=== PATIENT | female | born 1965 | race Caucasian/White ===

== ENCOUNTER → 2016-12-28 | Outpatient (CLI) | payer BC ==
[2016-12-28 15:50] VITALS: BP 105/66; PULSE 80; RESP 20; TEMP 98.1; BMI 43.0
--- NOTE | 2016-12-28 15:56 | P.HPBAR ---
Bariatric H&P - History & Physicial H&P Date: 12/28/16 History & Physicial: Visit/CC: wants a sleeve Patient initial contact: December 2016 Initial weight: 121.064 kg Initial weight in pounds: 266.90 Height: 5 ft 6 in Initial BMI: 43.0 Last weight: Current weight: 121.064 kg Current weight in pounds: 266.90 Current BMI: 43.0 [place] body weight (based on NIH guidelines): 58.967 kg Excess body weight loss: 0.0% The patient is a 51 year-old F who presents for Bariatric Assessment. she presents today as a new patient for sleeve gastrectomy evaluation. She knows 2 separate patients who have had sleeve gastrectomy in the past and believes that is the most appropriate surgery for her. She went to a recent seminar with her . the patient suffers from high blood pressure and hypothyroidism. Denies reflux. No history of DVT in the past. the patient was having ST to 72. Her weight currently is 267. she recently stopped drinking pop and started with smaller meals and has had a 5 pound weight loss. her only significant abdominal surgery was a lap jolene done 8-9 years ago. she is a nonsmoker. she does require a 7 month supervised weight loss program. Review of Systems The patient denies any acute changes in his vision or hearing, no dysphagia or odynophagia, no chest pain or shortness of breath, no dysuria or hematuria, no headache, no runny nose, no rectal bleeding or melena, no unexplained weight loss Past Medical History Smoking Status: Never smoker Surgical - Exam Vital Signs Temp Pulse Resp BP 98.1 F 80 20 105/66 12/28/16 15:12 12/28/16 15:12 12/28/16 15:12 12/28/16 15:12 Physical exam: General: Well-developed, well-nourished HEENT: Normocephalic, sclerae nonicteric Abdomen: Nontender, nondistended, no palpable hernia Extremities: No edema Neuro: Alert and oriented Bariatric Assessment & Plan (1) Morbid obesity Narrative/Plan: Continue seven-month supervised weight loss program. Await medical clearance and psychological evaluation. Will require upper endoscopy one month prior to surgery. Will require preoperative lab work. The patient will follow up with me after her upper endoscopy to finalize surgical plans. Status: Acute Bariatric Checklist Checklist: Plan: Checklist: EGD: 1. Hiatal hernia: 2. H. Pylori: HgbA1c: Vitamin D: Smoking: Never smoker Primary care physician referral: Dr Patrick Psychiatry clearance: Cardiology clearance: Sleep study: Diet journal: VTE risk score: VTE risk level: Rehab needs at discharge: Bariatric MBSAQIP Questions - General Questions Was an incisional hernia noted on exam?: No - Comorbidities Sleep Apnea: No GERD requiring medication: No Hyperlipidemia: No Hypertension: Yes Diabetes: No
== END | disposition home or self-care (01) ==
LOC: BARWHC3 14:19
PROVIDERS: ATTEND Surgery
DX: E66.01 Morbid (severe) obesity due to excess calories (principal); E03.9 Hypothyroidism, unspecified; R03.0 Elevated blood-pressure reading, without diagnosis of hypertension
CPT/HCPCS: 99201

== ENCOUNTER → 2017-05-17 | Outpatient (CLI) | payer BC ==
[2017-05-17 15:08] VITALS: BP 127/86; PULSE 82; TEMP 98.4; BMI 42.4
== END | disposition home or self-care (01) ==
LOC: BARWHC3 14:20
PROVIDERS: ATTEND Surgery
DX: E66.01 Morbid (severe) obesity due to excess calories (principal); Z71.89 Other specified counseling
CPT/HCPCS: 99211

== ENCOUNTER 2017-05-27 07:36 | Day surgery (SDC) | payer BC ==
[2017-05-24 15:26] VITALS: BMI 42.4
[~2017-05-27 07:36] MED LIST: LACTATED RINGERS 1,000 ML IV SCH; LIDOCAINE 1% 20 ML VIAL (10MG/ML) FOR IV START INTRADERMA PRN
[2017-05-27 08:02] VITALS: TEMP 97
[2017-05-27] MEDS ORDERED: PROPOFOL 10 MG/ML 20 ML VIAL IV ONE (08:42)
[2017-05-27] MEDS ORDERED: LIDOCAINE 1% INJ 10MG/ML (20 ML MDV) ONE (08:42)
--- NOTE | 2017-05-27 08:56 | P.GSHP ---
History of Present Illness H&P Date: 05/27/17 Chief Complaint: GERD Patient here today for upper endoscopy. She is interested in sleeve gastrectomy. She has recently completed her 6 month supervised weight loss program. Only mild reflux at times. Denies dysphagia. Past Medical History Past Medical History: Hypertension, Thyroid Disorder History of Any Multi-Drug Resistant Organisms: None Reported Past Surgical History: Cholecystectomy, Tonsillectomy, Tubal Ligation, Uterine Ablation Additional Past Surgical History / Comment(s): nose surgery 2014 Past Anesthesia/Blood Transfusion Reactions: Previous Problems w/ Anesthesia Additional Past Anesthesia/Blood Transfusion Reaction / Comment(s): states "feels agitated and panicky with anesthesia." Past Psychological History: No Psychological Hx Reported Smoking Status: Never smoker Past Alcohol Use History: Occasional Past Drug Use History: None Reported - Past Family History Mother Family Medical History: Cancer, Coronary Artery Disease (CAD) Additional Family Medical History / Comment(s): CABG Father Family Medical History: Cancer, Coronary Artery Disease (CAD) Additional Family Medical History / Comment(s): CABG Brother(s) Family Medical History: AFIB Medications and Allergies Home Medications Medication Instructions Recorded Confirmed Type Aspirin 81 mg PO DAILY 12/29/16 05/24/17 History Biotin 5 mg PO DAILY 12/29/16 05/24/17 History Citalopram Hydrobromide 40 mg PO QAM 12/29/16 05/24/17 History [Citalopram HBr] Diltiazem HCl [Diltiazem 12Hr ER] 1 tab PO QAM 12/29/16 05/24/17 History Enalapril [Vasotec] 20 mg PO QAM 12/29/16 05/24/17 History Fexofenadine HCl [Angelica Allergy] 60 mg PO HS 12/29/16 05/24/17 History Levothyroxine Sodium [Synthroid] 200 mcg PO QAM 12/29/16 05/24/17 History Liothyronine Sodium [Cytomel] 5 mcg PO QAM 12/29/16 05/24/17 History Montelukast [Singulair] 10 mg PO QAM 12/29/16 05/24/17 History Multivitamin [Multivitamins Adult 1 tab PO DAILY 12/29/16 05/24/17 History Gummies] Allergies Allergy/AdvReac Type Severity Reaction Status Date / Time Penicillins Allergy Anaphylaxis Verified 05/24/17 15:14 Surgical - Exam Vital Signs Temp Pulse Resp BP Pulse Ox 97.0 F L 92 18 152/88 98 05/27/17 08:01 05/27/17 08:01 05/27/17 08:01 05/27/17 08:01 05/27/17 08:01 Physical exam: General: Well-developed, well-nourished HEENT: Normocephalic, sclerae nonicteric Abdomen: Nontender, nondistended Extremities: No edema Neuro: Alert and oriented Assessment and Plan (1) GERD (gastroesophageal reflux disease) Narrative/Plan: Will proceed with upper endoscopy at this time. Status: Acute
--- NOTE | 2017-05-27 09:03 | P.PCN ---
Date of Procedure: 05/27/17 Procedure(s) Performed: Preoperative Dx: Preoperative evaluation, mild reflux Postoperative Dx: Mild gastritis Procedure: EGD with Bx Anesthesia: Sedation Endoscopist: Dr. Mccloud Specimens: Antrum Endoscopic Procedure: The patient was on the endoscopy table in the left decubitus position. The Olympus gastroscope was inserted into the oropharynx and passed under direct visualization to the region of the third portion of the duodenum. From that point the scope was slowly withdrawn inspecting all surfaces carefully. There were no neoplastic inflammatory or polypoid lesions throughout the duodenum. The pylorus was widely patent. The stomach was carefully inspected. There was mild gastritis present. A biopsy of the antrum took place to rule out H. pylori. Retroflexion revealed a normal hiatus. The esophagus was then carefully examined. There were no neoplastic inflammatory or polypoid lesions throughout the visualized esophagus. The patient was then taken to the recovery room in stable condition per anesthesia guidelines. Recommendations: Await biopsy results. Proceed with scheduling sleeve gastrectomy
[2017-05-27 09:06] VITALS: RESP 16
[2017-05-27 09:33] VITALS: BP 132/63; PULSE 67
== END 2017-05-27 09:47 | disposition home or self-care (01) ==
LOC: ORWHC2ENDO 07:36
PROVIDERS: ATTEND Surgery
DX: K21.9 Gastro-esophageal reflux disease without esophagitis (principal); E07.9 Disorder of thyroid, unspecified; I10 Essential (primary) hypertension; K29.50 Unspecified chronic gastritis without bleeding; Z01.818 Encounter for other preprocedural examination; Z79.82 Long term (current) use of aspirin; Z82.49 Family history of ischemic heart disease and other diseases of the circulatory system; Z88.0 Allergy status to penicillin; E66.01 Morbid (severe) obesity due to excess calories
CPT/HCPCS: 81025; 88305; 88342; 43239; J2001; J2704

== ENCOUNTER → 2017-06-06 | Outpatient (CLI) | payer BC ==
[2017-06-06 15:49] VITALS: BMI 43.0
== END | disposition home or self-care (01) ==
LOC: BARWHC3 08:51
PROVIDERS: ATTEND Surgery
DX: E66.01 Morbid (severe) obesity due to excess calories (principal)
CPT/HCPCS: 97804

== ENCOUNTER → 2017-11-02 | Outpatient (CLI) | payer BC ==
--- NOTE | 2017-11-03 10:21 | MM ---
Reason for exam: screening (asymptomatic). Last mammogram was performed 2 years and 5 months ago. History: Patient is nulliparous. Family history of breast cancer in mother at age 64. Took hormonal contraceptives for 10 years. Physical Findings: A clinical breast exam by your physician is recommended on an annual basis and results should be correlated with mammographic findings. MG Screening Mammo w CAD Bilateral CC and MLO view(s) were taken. Prior study comparison: May 30, 2015, bilateral MG screening mammo w CAD. April 25, 2013, bilateral digital screening mammo w/CAD. There are scattered fibroglandular densities. Finding: There are typically benign dystrophic, round calcifications in both breasts. There is a chronic nodularity bilaterally. New group of indistinct calcifications in the left anterior subareolar position. ASSESSMENT: Incomplete: need additional imaging evaluation, BI-RAD 0 RECOMMENDATION: Special view mammogram of the left breast. [facility] will attempt to contact patient to return for supplemental views.
== END | disposition home or self-care (01) ==
LOC: RADMAMWWP 16:06
PROVIDERS: ATTEND Internal Medicine
DX: Z12.31 Encounter for screening mammogram for malignant neoplasm of breast (principal)
CPT/HCPCS: 77067

== ENCOUNTER → 2017-11-10 | Outpatient (CLI) | payer BC ==
--- NOTE | 2017-11-10 10:47 | MM ---
Reason for exam: additional evaluation requested from abnormal screening. Last mammogram was performed less than 1 month ago. History: Patient is nulliparous. Family history of breast cancer in mother at age 64. Took hormonal contraceptives for 10 years. Physical Findings: Nurse did not find any significant physical abnormalities on exam. MG Work Up Mamm w CAD LT CC with magnification, ML with magnification, and ML view(s) were taken of the left breast. Prior study comparison: November 02, 2017, bilateral MG screening mammo w CAD. May 30, 2015, bilateral MG screening mammo w CAD. There are scattered fibroglandular densities. Finding: There are intermediate concern, suspicious calcifications in the subareolar position of the left breast. New finding since November 02, 2017 and May 30, 2015. These results were verbally communicated with the patient and result sheet given to the patient on 11/10/17. ASSESSMENT: Incomplete: need additional imaging evaluation, BI-RAD 0 RECOMMENDATION: Ultrasound and stereotactic core biopsy of the left breast. Called Dr. Patrick with mammographic findings and has scheduled an appointment for the patient for 11/24/17 at 10:[address] Mccloud. Biopsy scheduled for 11/14/17 at 8 o'clock. PRELIMINARY REPORT CALLED AND FAXED TO DR. MCCLOUD ON 11/10/17.
--- NOTE | 2017-11-10 10:49 | USB ---
Reason for exam: additional evaluation requested from abnormal screening. History: Patient is nulliparous. Family history of breast cancer in mother at age 64. Took hormonal contraceptives for 10 years. US Breast Workup Limited LT Left breast ultrasound demonstrates no cystic or solid lesion seen. These results were verbally communicated with the patient and result sheet given to the patient on 11/10/17. ASSESSMENT: Negative, BI-RAD 1 RECOMMENDATION: Stereotactic core biopsy of the left breast. Called Dr. Patrick with mammographic findings and has scheduled an appointment for the patient for 11/24/17 at 10:[address] Mccolud. Biopsy scheduled for 11/14/17 at 8 o'clock. PRELIMINARY REPORT CALLED AND FAXED TO DR. MCCLOUD ON 11/10/17.
== END | disposition home or self-care (01) ==
LOC: RADMAMWWP 06:57
PROVIDERS: ATTEND Internal Medicine
DX: R92.8 Other abnormal and inconclusive findings on diagnostic imaging of breast (principal)
CPT/HCPCS: 77065

== ENCOUNTER → 2017-11-14 | Day surgery (SDC) | payer BC ==
[2017-11-14 07:22] VITALS: RESP 16; TEMP 98; BMI 37.9
[2017-11-14 09:27] VITALS: BP 106/71; PULSE 69
--- NOTE | 2017-11-14 10:02 | MM ---
EXAMINATION TYPE: MG stereo VAD BX LT DATE OF EXAM: 11/14/2017 COMPARISON: 11/10/17 CLINICAL HISTORY: Indeterminate anterior to subcentimeter group of calcifications in the lower outer quadrant for which dedicated guided biopsy was recommended. TECHNIQUE: Stereotactic guided core biopsy of left breast. FINDINGS: The procedure of stereotactic guided core biopsy was explained to the patient. Benefits, a lternatives, and risks were discussed. An informed consent was then obtained. Preprocedural timeout was performed. The safest pathway for biopsy was chosen. Safest pathway was lateral medial approach. Preprocedural t argeting was performed with stereotactic pairs. Coordinates were calculated. 10 cc of lidocaine witho ut epinephrine buffered with bicarbonate was utilized to anesthetize the skin and subcutaneous tissue s. The needle was advanced to the appropriate depth. Prefire images were obtained ensuring appropriat e localization. Additional 5 cc of lidocaine with epinephrine was given at the site of biopsy. Subseq uently 9 samples were obtained with a vacuum assisted stereotactic biopsy needle. Targeted calcifica tions are identified in specimen mammogram. Post biopsy marker was placed. Post biopsy mammogram caterina ws the clip to appear in satisfactory position relative to the targeted area of concern on the prepro cedure images. The patient tolerated the procedure well without any immediate complication. The patient was kept in the radiology department for short stay after the procedure and then discharged home in stable condi tion. IMPRESSION: SUCCESSFUL, UNCOMPLICATED STEREOTACTIC GUIDED CORE BIOPSY OF A SUBCENTIMETER GROUP OF CALCIFICATIONS AT ANTERIOR DEPTH IN THE LOWER OUTER QUADRANT OF THE LEFT BREAST, FULL PATHOLOGY RESULTS TO FOLLOW.
== END ==
LOC: RADMAMWWP 06:52
PROVIDERS: ATTEND Surgery
DX: N60.92 Unspecified benign mammary dysplasia of left breast (principal); N60.22 Fibroadenosis of left breast; R92.1 Mammographic calcification found on diagnostic imaging of breast; Z88.0 Allergy status to penicillin
CPT/HCPCS: 88305; 19081; A4648; J2001

== ENCOUNTER → 2018-06-02 | Outpatient (CLI) | payer BC ==
--- NOTE | 2018-06-02 08:24 | MM ---
Reason for exam: follow-up at short interval from prior study. Last mammogram was performed 7 months ago. History: Patient is nulliparous. Family history of breast cancer in mother at age 64. Benign MG stereo VAD BX LT of the left breast, November 14, 2017. Took hormonal contraceptives for 10 years. Physical Findings: A clinical breast exam by your physician is recommended on an annual basis and results should be correlated with mammographic findings. MG Diagnostic Mammo LT w CAD CC, MLO, and ML view(s) were taken of the left breast. Prior study comparison: November 10, 2017, left breast MG work up mamm w CAD LT. November 02, 2017, bilateral MG screening mammo w CAD. There are scattered fibroglandular densities. No significant changes when compared with prior studies. ASSESSMENT: Benign, BI-RAD 2 RECOMMENDATION: Return to routine screening mammogram schedule for both breasts. Back on schedule.
== END | disposition home or self-care (01) ==
LOC: RADMAMWWP 06:55
PROVIDERS: ATTEND Surgery
DX: R92.8 Other abnormal and inconclusive findings on diagnostic imaging of breast (principal)
CPT/HCPCS: 77065

== ENCOUNTER 2018-12-05 20:29 | Inpatient (IN) | payer BC ==
[2018-12-05] MEDS ORDERED: SODIUM CHLORIDE 0.9% 1,000 ML IV STA (20:49)
[2018-12-05] MEDS ORDERED: ONDANSETRON 4 MG/2 ML VIAL IVP STA (20:49)
[2018-12-05] MEDS ORDERED: MORPHINE SULFATE 4 MG/ML SYRINGE IV STA (20:49)
--- NOTE | 2018-12-05 21:27 | XR ---
EXAMINATION TYPE: XR ankle limited RT DATE OF EXAM: 12/05/2018 COMPARISON: None HISTORY: Fell down the stairs TECHNIQUE: 2 views FINDINGS: There is posterior dislocation of the talus. There is trimalleolar fracture of the ankle. T here is comminution of the distal fibular fragment. IMPRESSION: Posterior trimalleolar fracture dislocation of the right ankle.
--- NOTE | 2018-12-05 21:29 | XR ---
EXAMINATION TYPE: XR tibia fibula RT DATE OF EXAM: 12/05/2018 COMPARISON: NONE HISTORY: Fell down the stairs. Pain. TECHNIQUE: 4 views FINDINGS: There is trimalleolar fracture posterior dislocation of the ankle joint. The knee joint keyur ears intact. IMPRESSION: Comminuted posterior TRImalleolar fracture dislocation of the ankle joint. Plantar calcan eal spurring noted.
--- NOTE | 2018-12-05 21:30 | XR ---
EXAMINATION TYPE: XR foot limited RT DATE OF EXAM: 12/05/2018 COMPARISON: NONE HISTORY: Fell down the stairs. Pain. TECHNIQUE: 2 views FINDINGS: Metatarsals are intact. Injured tarsal joint spaces are fairly normal. The toes appear inta ct. There is narrowing and spurring at the first MP joint. IMPRESSION: No foot fracture seen. Plantar calcaneal spurring. 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
[2018-12-05 21:42] LABS: Basophils % (A) 0 %; Eosinophils # (A) 0.2 k/uL (0-0.7); Eosinophils % (A) 2 %; HCT 40.3 % (34.0-46.0); HGB 12.9 gm/dL (11.4-16.0); Lymphocytes # (A) 1.7 k/uL (1.0-4.8); Lymphocytes % (A) 16 %; MCH 28.6 pg (25.0-35.0); MCV 89.5 fL (80.0-100.0); Mean Platelet Volume 6.5; Monocytes # (A) 0.4 k/uL (0-1.0); Monocytes % (A) 4 %; Neutrophils # (A) 8.4 k/uL (1.3-7.7); Neutrophils % (A) 76 %; Platelet Count 379 k/uL (150-450); RBC 4.51 m/uL (3.80-5.40); RDW 12.9 % (11.5-15.5)
[2018-12-05 21:47] LABS: Anion Gap 8 mmol/L; Blood Urea Nitrogen 17 mg/dL (7-17); Calcium 9.4 mg/dL (8.4-10.2); Carbon Dioxide 19 mmol/L (22-30); Chloride 111 mmol/L (98-107); Glucose 99 mg/dL (74-99); Potassium 5.1 mmol/L (3.5-5.1); Sodium 138 mmol/L (137-145)
[2018-12-05 22:08] LABS: INR 0.9 (<1.2); Prothrombin Time 9.9 sec (9.0-12.0)
[2018-12-05 22:10] LABS: Partial Thromboplastin Time 20.2 sec (22.0-30.0)
[2018-12-05] MEDS ORDERED: PROPOFOL 10 MG/ML 20 ML VIAL IV ONE (22:16)
--- NOTE | 2018-12-05 22:21 | ED ---
Lower Extremity Injury HPI - General Chief Complaint: Extremity Injury, Lower Stated Complaint: Fall Time Seen by Provider: 12/05/18 20:44 Source: patient, EMS Mode of arrival: EMS - History of Present Illness Initial Comments: This 53-year-old white female presents complaining of falling down 15 stairs. She states that she apparently lost her balance towards the top of the stairs. She is complaining of some right ankle pain. She states that she was able to crawl back up the stairs and called the ambulance. She did receive some morphine via EMS and route with some relief. She still complains of some moderate to significant pain. She denies any other injuries. She denies any head injury, neck pain or back pain. She does relate a history of previous falls which she seems to think may be related to her bifocals. She denies any actual syncope. There is no chest pain or shortness of breath. No other complaints or modifying factors. - Related Data Home Medications Medication Instructions Recorded Confirmed Aspirin 81 mg PO DAILY 12/29/16 11/14/17 Citalopram Hydrobromide 40 mg PO QAM 12/29/16 11/14/17 [Citalopram HBr] Diltiazem HCl [Diltiazem 12Hr ER] 1 tab PO QAM 12/29/16 11/14/17 Enalapril [Vasotec] 20 mg PO QAM 12/29/16 11/14/17 Fexofenadine HCl [Angelica Allergy] 60 mg PO HS 12/29/16 11/14/17 Levothyroxine Sodium [Synthroid] 200 mcg PO QAM 12/29/16 11/14/17 Liothyronine Sodium [Cytomel] 5 mcg PO QAM 12/29/16 11/14/17 Montelukast [Singulair] 10 mg PO QAM 12/29/16 11/14/17 Multivitamin [Multivitamins Adult 1 tab PO DAILY 12/29/16 11/14/17 Gummies] Allergies Allergy/AdvReac Type Severity Reaction Status Date / Time Penicillins Allergy Anaphylaxis Verified 12/05/18 21:01 Review of Systems ROS Statement: Those systems with pertinent positive or pertinent negative responses have been documented in the HPI. ROS Other: All systems not noted in ROS Statement are negative. Past Medical History Past Medical History: Hypertension, Thyroid Disorder Additional Past Medical History / Comment(s): seasonal allergies History of Any Multi-Drug Resistant Organisms: None Reported Past Surgical History: Cholecystectomy, Tonsillectomy, Tubal Ligation, Uterine Ablation Additional Past Surgical History / Comment(s): nose surgery 2015 Past Anesthesia/Blood Transfusion Reactions: Previous Problems w/ Anesthesia Additional Past Anesthesia/Blood Transfusion Reaction / Comment(s): states "feels agitated and panicky with anesthesia." Past Psychological History: No Psychological Hx Reported Smoking Status: Never smoker Past Alcohol Use History: Occasional Past Drug Use History: None Reported - Past Family History Mother Family Medical History: Cancer, Coronary Artery Disease (CAD) Additional Family Medical History / Comment(s): CABG Father Family Medical History: Cancer, Coronary Artery Disease (CAD) Additional Family Medical History / Comment(s): CABG Brother(s) Family Medical History: AFIB General Exam - General Exam Comments Initial Comments: GENERAL: The patient is well nourished and well hydrated. VITAL SIGNS: Heart rate, blood pressure, respiratory rate reviewed as recorded in nurse's notes. EYES: Pupils are round and reactive. Extraocular movements are intact. No conjunctival / lid redness or swelling. ENT: No external evidence of injury, swelling, or ecchymosis. Airway is patent. Throat is clear. NECK: Nontender. No swelling or evidence of injury. No subcutaneous emphysema. Trachea is midline. No thyroid mass. HEART: Regular rate and rhythm. Good peripheral pulses. LUNGS/CHEST: Breath sounds clear and equal bilaterally. No rales, rhonchi, or wheezes. No ecchymosis, subcutaneous emphysema, or tenderness. ABDOMEN: Abdomen soft without tenderness. No palpable masses or organomegaly. No peritoneal signs. No abdominal wall swelling or ecchymosis. EXTREMITIES: Tenderness and deformity is noted to the right ankle. The patient does have excellent pulses. Sensation appears to be intact as well. No other orthopedic injuries are identified. Normal muscle tone and function. No thoracolumbar tenderness. NEUROLOGIC: Sensation is grossly intact. Cranial nerve exam reveals face is symmetrical, tongue is midline, speech is clear. SKIN: No abrasions or ecchymosis is noted. No induration or masses noted. PSYCHIATRIC: Alert and oriented. Appropriate behavior and judgment. Course Vital Signs 12/05/18 12/05/18 12/05/18 20:40 22:00 22:38 Temperature 98.0 F Pulse Rate 96 85 88 Respiratory 18 18 18 Rate Blood Pressure 151/66 125/69 146/76 O2 Sat by Pulse 98 97 93 L Oximetry 12/05/18 12/05/18 12/05/18 22:41 22:45 22:50 Temperature Pulse Rate 89 86 84 Respiratory 16 18 18 Rate Blood Pressure 118/69 118/64 109/70 O2 Sat by Pulse 94 L 95 95 Oximetry 12/05/18 12/05/18 12/05/18 23:00 23:15 23:30 Temperature 98.0 F Pulse Rate 85 84 82 Respiratory 18 18 18 Rate Blood Pressure 126/65 126/61 118/56 O2 Sat by Pulse 95 96 95 Oximetry Medical Decision Making - Medical Decision Making The patient is seen and examined. All diagnostics are reviewed. The CO2 is slightly decreased. The remainder of labs are essentially within normal limits with a mild leukocytosis. He also has an x-ray of the right tibia and fibula right foot which does not show any acute abnormalities. The ankle does show evidence of a trimalleolar fracture dislocation. The patient had an EKG which shows a normal sinus rhythm at a rate of 82. There is no acute ST-T wave changes identified. An IV is established and she does receive additional 4 mg of morphine. Is felt as though she benefit from reduction of her ankle. She does elect to have procedural sedation. The case is discussed with orthopedics in the requests that we reduce the ankle in the ER numerous and the patient home or admit her. She is strongly requesting admission to the hospital. She states that she is not history with crutches and is worried about falling again. Consent was obtained for procedural sedation. Time out was completed prior to the procedure. The patient received a total of 120 mg of propofol. Excellent sedation is noted. She is watched on a cardiorespiratory monitor. The ankle was reduced in the usual standard fashion with slight pressure. It did seem to align quite well. Ample padding was initially placed, a 5 inch posterior splint was placed in a 3 inch sugar tong cast was placed laterally and medially. Cirilo wrap was then applied. She tolerated this quite well. There is no desaturations or complications. There is no blood loss. Please see the nursing notes for the specific times. It is felt as though patient would require admission and will be admitted to the general medical floor for further treatment - Lab Data Result diagrams: 12/05/18 21:25 12/05/18 21:25 Lab Results 12/05/18 12/05/18 12/05/18 Range/Units 21:25 21:25 21:25 WBC 11.0 H (3.8-10.6) k/uL RBC 4.51 (3.80-5.40) m/uL Hgb 12.9 (11.4-16.0) gm/dL Hct 40.3 (34.0-46.0) % MCV 89.5 (80.0-100.0) fL MCH 28.6 (25.0-35.0) pg MCHC 32.0 (31.0-37.0) g/dL RDW 12.9 (11.5-15.5) % Plt Count 379 (150-450) k/uL Neutrophils % 76 % Lymphocytes % 16 % Monocytes % 4 % Eosinophils % 2 % Basophils % 0 % Neutrophils # 8.4 H (1.3-7.7) k/uL Lymphocytes # 1.7 (1.0-4.8) k/uL Monocytes # 0.4 (0-1.0) k/uL Eosinophils # 0.2 (0-0.7) k/uL Basophils # 0.0 (0-0.2) k/uL PT 9.9 (9.0-12.0) sec INR 0.9 (<1.2) APTT 20.2 L (22.0-30.0) sec Sodium 138 (137-145) mmol/L Potassium 5.1 (3.5-5.1) mmol/L Chloride 111 H (98-107) mmol/L Carbon Dioxide 19 L (22-30) mmol/L Anion Gap 8 mmol/L BUN 17 (7-17) mg/dL Creatinine 0.57 (0.52-1.04) mg/dL Est GFR (CKD-EPI)AfAm >90 (>60 ml/min/1.73 sqM) Est GFR (CKD-EPI)NonAf >90 (>60 ml/min/1.73 sqM) Glucose 99 (74-99) mg/dL Calcium 9.4 (8.4-10.2) mg/dL Disposition Clinical Impression: Trimalleolar fracture of right ankle, Dislocation of right ankle joint, Fall, Morbid obesity Disposition: ADMITTED IP TO THIS HOSP Condition: Fair Is patient prescribed a controlled substance at d/c from ED?: No Time of Disposition: 23:38 Decision Date: 12/05/18 Decision Time: 23:39
--- NOTE | 2018-12-05 23:22 | XR ---
EXAM: XR Right Ankle Complete, 2Views CLINICAL HISTORY: ITS.REASON XR Reason: Post Reduction TECHNIQUE: Frontal, lateral views of the right ankle. COMPARISON: 12/05/18 FINDINGS: Interval reduction of the posterior right ankle dislocation. Trimalleolar fracture fragments are also in better alignment. IMPRESSION: Reduction of right ankle fracture dislocation.
[2018-12-05] MEDS ORDERED: ONDANSETRON 4 MG/2 ML VIAL IVP PRN (23:39)
[2018-12-05] MEDS ORDERED: ACETAMINOPHEN TAB 325 MG TAB PO PRN (23:39)
[2018-12-05] MEDS ORDERED: NALOXONE 0.4 MG/ML 1 ML VIAL IV PRN (23:39)
[2018-12-06] MEDS: MORPHINE SULFATE 4 MG/ML SYRINGE IV PRN ×4 (00:44→15:35)
[2018-12-06] MEDS: ENOXAPARIN 40 MG/0.4 ML SYRINGE SQ SCH ×2 (01:53→15:34)
[2018-12-06] MEDS: HYDROcodone/APAP 5-325MG 1 EACH TAB PO PRN ×3 (03:32→13:02)
[2018-12-06] MEDS: PANTOPRAZOLE 40 MG/10 ML VIAL IV SCH (07:46)
[2018-12-06] MEDS: LISINOPRIL 20 MG TAB PO SCH (07:47)
[2018-12-06] MEDS: MONTELUKAST 10 MG TAB PO SCH (07:47)
[2018-12-06] MEDS: CITALOPRAM HYDROBROMIDE 20 MG TAB PO SCH (07:47)
[2018-12-06] MEDS: LIOTHYRONINE SODIUM 5 MCG TAB PO SCH (07:48)
[2018-12-06] MEDS: MULTIVITAMINS, THERA 1 EACH TAB PO SCH (07:50)
[2018-12-06] MEDS: LEVOTHYROXINE 100 MCG TAB PO SCH (07:57)
--- NOTE | 2018-12-06 11:06 | CT ---
CT right ankle without contrast HISTORY: Fracture dislocation Helical acquisition through the right ankle, coronal and sagittal reconstructions. DLP 242.1 mGy cent imeters, automated exposure control for dose reduction. Correlation to plain film 12/05/2017 There is a comminuted trimalleolar fracture noted as on plain film, fracture fragments are displaced and angulated. There is soft tissue swelling present. There is a plantar calcaneal spur present. IMPRESSION: Trimalleolar right ankle fracture as described
[2018-12-06] MEDS: ASPIRIN 81 MG PO SCH (15:34)
--- NOTE | 2018-12-06 16:12 | P.HPOR ---
History of Present Illness H&P Date: 12/06/18 This patient is a 53-year-old female with a past medical history of hypertension and hypothyroidism presented to the [facility] ED on 4218 for evaluation of right ankle pain. Patient states that she lost her balance all walking down the steps to her basement. The patient states she subsequently fell down 15 steps. Patient states he experienced immediate pain in her right ankle, and visible deformity of the ankle. She had to crawl up the steps to reach a phone to call family members for help, who called EMS. Upon arrival to the ED, x-rays showed evidence of a right ankle trimalleolar fracture. She underwent a closed reduction and splinting in the ED. She was admitted to the hospital, per the patient's request, as she was afraid of falling at home again. At the time of my examination, the patient states that the pain in her right ankle is well-controlled. She states the splint that she is currently in is comfortable. Patient denies any additional injuries from her fall. She denies pain elsewhere in the body at this time. Past Medical History Past Medical History: Hypertension, Thyroid Disorder Additional Past Medical History / Comment(s): seasonal allergies History of Any Multi-Drug Resistant Organisms: None Reported Past Surgical History: Cholecystectomy, Tonsillectomy, Tubal Ligation, Uterine Ablation Additional Past Surgical History / Comment(s): nose surgery 2014 Past Anesthesia/Blood Transfusion Reactions: Previous Problems w/ Anesthesia Additional Past Anesthesia/Blood Transfusion Reaction / Comment(s): states "feels agitated and panicky with anesthesia." Past Psychological History: No Psychological Hx Reported Smoking Status: Never smoker Past Alcohol Use History: Occasional Past Drug Use History: None Reported - Past Family History Mother Family Medical History: Cancer, Coronary Artery Disease (CAD) Additional Family Medical History / Comment(s): CABG Father Family Medical History: Cancer, Coronary Artery Disease (CAD) Additional Family Medical History / Comment(s): CABG Brother(s) Family Medical History: AFIB Medications and Allergies Home Medications Medication Instructions Recorded Confirmed Type Citalopram Hydrobromide 40 mg PO QAM 12/29/16 12/06/18 History [Citalopram HBr] Diltiazem HCl [Diltiazem 12Hr ER] 120 mg PO QAM 12/29/16 12/06/18 History Enalapril [Vasotec] 20 mg PO QAM 12/29/16 12/06/18 History Levothyroxine Sodium [Synthroid] 200 mcg PO QAM 12/29/16 12/06/18 History Liothyronine Sodium [Cytomel] 5 mcg PO QAM 12/29/16 12/06/18 History Montelukast [Singulair] 10 mg PO QAM 12/29/16 12/06/18 History Multivitamin [Multivitamins Adult 1 tab PO DAILY 12/29/16 11/14/17 History Gummies] Levocetirizine Dihydrochloride 5 mg PO DAILY 12/06/18 12/06/18 History [Xyzal] Allergies Allergy/AdvReac Type Severity Reaction Status Date / Time amoxicillin Allergy Unknown Verified 12/06/18 08:30 Penicillins Allergy Anaphylaxis Verified 12/05/18 21:01 Physical Examination On examination, the patient is sitting up in bed in no acute distress. The patient is alert and oriented 3. Her breathing appears nonlabored. Her head is normocephalic and atraumatic. On inspection of the right upper extremity, there is a splint in place. Splint is taken down and reveals mild ecchymosis and swelling of the ankle. There are no open wounds or lacerations. Patient is able to wiggle her right toes without issue. The toes are warm and well- perfused with brisk capillary refill. Sensation is intact to light touch of the dorsal and plantar foot. Neurovascular is intact of the right lower extremity. Results CT right ankle 4319: Right trimalleolar ankle fracture. X-ray right ankle 4219: Posterior trimalleolar fracture dislocation of the right ankle. X-ray right foot [id number]: No acute fracture seen. - Labs Labs: Abnormal Lab Results - Last 24 Hours (Table) 12/05/18 12/05/18 12/05/18 Range/Units 21:25 21:25 21:25 WBC 11.0 H (3.8-10.6) k/uL Neutrophils # 8.4 H (1.3-7.7) k/uL APTT 20.2 L (22.0-30.0) sec Chloride 111 H (98-107) mmol/L Carbon Dioxide 19 L (22-30) mmol/L H & H 12/05/18 Range/Units 21:25 Hgb 12.9 (11.4-16.0) gm/dL Hct 40.3 (34.0-46.0) % Coagulation 12/05/18 Range/Units 21:25 INR 0.9 (<1.2) Result Diagrams: 12/05/18 21:25 12/05/18 21:25 Assessment and Plan Assessment: Right trimalleolar ankle fracture. Plan: - Discussed with the patient that she will require operative fixation of her ankle. She has mild swelling of the soft tissues at this time, therefore an attempt at a right ankle ORIF this afternoon will be performed with Dr. Martin. If upon arrival to the OR the selling of increased to the point an incision cannot be made, she will undergo a closed reduction of the ankle and she will be placed in a well-padded Bulky herzog splint, and she will follow-up with Dr. Martin in the office in one week for a soft tissue check. The patient understands and agrees with this plan. - Strict non-weight bearing right lower extremity. - NPO diet. - Continue pain management. Patient discussed with Dr. Martin.
[2018-12-06] MEDS ORDERED: SODIUM CHLORIDE 0.9% 1,000 ML IV ONE ×2 (18:00)
[2018-12-06] MEDS ORDERED: fentaNYL (PF) 50 MCG/ML 2 ML AMP IVP ONE ×2 (18:20→18:58)
[2018-12-06] MEDS ORDERED: MIDAZOLAM 2 MG/2 ML VIAL IVP ONE ×2 (18:20→18:58)
[2018-12-06] MEDS: DILTIAZEM CD 120 MG CAP.ER.24H PO SCH (18:24)
[2018-12-06] MEDS ORDERED: MIDAZOLAM 2 MG/2 ML VIAL ONE (19:00)
[2018-12-06] MEDS ORDERED: PROPOFOL 10 MG/ML 20 ML VIAL IV ONE (19:00)
[2018-12-06] MEDS ORDERED: LACTATED RINGERS 1,000 ML IV ONE (19:02)
--- NOTE | 2018-12-06 19:38 | P.OP ---
Date of Procedure: 12/06/18 Preoperative Diagnosis: 1. Right trimalleolar ankle fracture patient Postoperative Diagnosis: Same Procedure(s) Performed: Application of short-leg splint by physician, right ankle Anesthesia: MAYITO Surgeon: Dyllan Martin Condition: stable Disposition: PACU Indications for Procedure: The patient is a very pleasant 53-year-old female who was admitted last night to Dr. Loredo after she was seen in our ER with an ankle fracture. She had an attempt at closed reduction and splinting in the emergency department both unable to discharge home since he lived alone. She was admitted overnight for pain control and discharge planning. I was asked to assume responsibility for her care. I met with the patient earlier today to discuss treatment. She was almost 20 hours out from her injury and his art he started to develop soft- tissue swelling diffusely throughout the ankle. We discussed that generally requires 7-14 days of splinting and elevation to allow soft tissue swelling to resolve before surgery, but in certain cases that the fracture can be fixed early before swelling has settled in the fracture could be definitively managed early. The patient was very hopeful that she could go to the operating room tonight for operative treatment. We discussed potential risks and complications of surgery. She agreed to go forward with closed reduction and splinting versus open reduction in the operating room pending her soft tissue evaluation. Operative Findings: The patient was brought back to the operating room and her splint was taken down. She was found to have tense swelling throughout the ankle with no wrinkling of the skin. The decision was made to go forward with splinting and cancel surgery. Description of Procedure: The patient was identified in preoperative holding and I reviewed the consent form. She was brought back to the operating room. The splint was taken down and she was found to have tense swelling and bruising. She underwent application of a new splint with varus mold. Fluoroscopy was used to verify that the talus was anatomically reduced within the ankle mortise. The patient was awoken from her sedation and brought to recovery having tolerated procedure well. Plan: The patient can discharge home whenever she is comfortable. We will have discharge orders placed tonight if she feels up to leaving. She'll need to follow up in the office in 1 week for soft tissue check. She is to remain nonweightbearing on her right leg and was instructed to ice and elevate as much as possible.
[2018-12-06] MEDS ORDERED: LORATADINE 10 MG TAB PO SCH (21:00)
[2018-12-07] MEDS: MORPHINE SULFATE 4 MG/ML SYRINGE IV PRN ×2 (00:44→13:00)
[2018-12-07] MEDS: HYDROcodone/APAP 5-325MG 1 EACH TAB PO PRN ×3 (06:00→14:12)
[2018-12-07] MEDS: LEVOTHYROXINE 100 MCG TAB PO SCH (08:02)
[2018-12-07] MEDS: PANTOPRAZOLE 40 MG/10 ML VIAL IV SCH (08:02)
[2018-12-07] MEDS: MULTIVITAMINS, THERA 1 EACH TAB PO SCH (08:02)
[2018-12-07] MEDS: ENOXAPARIN 40 MG/0.4 ML SYRINGE SQ SCH ×2 (08:03→08:04)
[2018-12-07] MEDS: LISINOPRIL 20 MG TAB PO SCH (08:03)
[2018-12-07] MEDS: ASPIRIN 81 MG PO SCH (08:03)
[2018-12-07] MEDS: CITALOPRAM HYDROBROMIDE 20 MG TAB PO SCH (08:03)
[2018-12-07] MEDS: LIOTHYRONINE SODIUM 5 MCG TAB PO SCH (08:04)
[2018-12-07] MEDS: DILTIAZEM CD 120 MG CAP.ER.24H PO SCH (08:04)
[2018-12-07] MEDS: MONTELUKAST 10 MG TAB PO SCH (08:07)
--- NOTE | 2018-12-07 08:34 | XR ---
Limited right ankle HISTORY: Closed reduction Single intraoperative image documents the procedure.
--- NOTE | 2018-12-07 08:37 | FL ---
Fluoroscopy HISTORY: Closed reduction right ankle 5 seconds fluoroscopy time supplied to the referring clinician. 1 intraoperative C-arm images docume nt the procedure. See dictated report from orthopedic surgery.
[2018-12-07 12:31] VITALS: BP 113/64; PULSE 89; RESP 16; TEMP 98.3
--- NOTE | 2018-12-07 17:21 | P.DS ---
Providers Date of admission: 12/05/18 23:44 Expected date of discharge: 12/07/18 Attending physician: Augustine Loredo Primary care physician: [place] Hospital Course: This is a 51-year-old female who is admitted to [facility] on 12/05/18 after a fall down 15 steps in the home, sustaining a right ankle injury. Patient was brought to the [facility] ED via EMS. X-rays in the emergency department revealed a trimalleolar fracture of the right ankle. She is admitted to our service for pain control and discharge planning. It was discussed with the patient that her ankle had become too swollen to move forward with surgery on this admission. It was explained that it is common to wait 7-14 days for swelling to subside following an ankle fracture, before surgery is performed. Patient was taken to the operating room on 12/06/18 for a closed reduction and splint application with Dr. Martin. The procedure was performed without complication or sequelae. The patient is doing fairly well postoperatively. Vital signs and labs are stable. Patient was examined bedside today. Patient is alert and orientated x3. Inspection reveals a bulky Baeza dressing in place on the right lower extremity. Right toes are warm and well perfused with brisk capillary refill. Patient is able to move her toes without issue. Sensation is intact to light touch of the toes. Left calf is soft and non tender. Patient is discharged home in good condition. Patient will follow-up with Dr. Martin in the office in 1 week for a soft tissue check and surgical planning. Please see med rec for accurate list of discharge medication Patient Condition at Discharge: Fair Plan - Discharge Summary New Discharge Prescriptions: New Hydrocodone/Acetaminophen [[place] 5-325] 1 tab PO Q4-6H PRN #40 tab PRN Reason: Pain No Action Diltiazem HCl [Diltiazem 12Hr ER] 120 mg PO QAM Levothyroxine Sodium [Synthroid] 200 mcg PO QAM Citalopram Hydrobromide [Citalopram HBr] 40 mg PO QAM Montelukast [Singulair] 10 mg PO QAM Enalapril [Vasotec] 20 mg PO QAM Liothyronine Sodium [Cytomel] 5 mcg PO QAM Multivitamin [Multivitamins Adult Gummies] 1 tab PO DAILY Levocetirizine Dihydrochloride [Xyzal] 5 mg PO DAILY Discharge Medication List Citalopram Hydrobromide [Citalopram HBr] 40 mg PO QAM 12/29/16 [History] Diltiazem HCl [Diltiazem 12Hr ER] 120 mg PO QAM 12/29/16 [History] Enalapril [Vasotec] 20 mg PO QAM 12/29/16 [History] Levothyroxine Sodium [Synthroid] 200 mcg PO QAM 12/29/16 [History] Liothyronine Sodium [Cytomel] 5 mcg PO QAM 12/29/16 [History] Montelukast [Singulair] 10 mg PO QAM 12/29/16 [History] Multivitamin [Multivitamins Adult Gummies] 1 tab PO DAILY 12/29/16 [History] Hydrocodone/Acetaminophen [[place] 5-325] 1 tab PO Q4-6H PRN #40 tab 12/06/18 [Rx] Levocetirizine Dihydrochloride [Xyzal] 5 mg PO DAILY 12/06/18 [History] Follow up Appointment(s)/Referral(s): Dyllan Martin MD [Medical Doctor] - 12/14/18 1:00 pm Patient Instructions/Handouts: Hydrocodone/Acetaminophen (By mouth), Ankle Fracture (DC), Fall Prevention (DC) Activity/Diet/Wound Care/Special Instructions: -Strict non-weight bearing on your right leg. Do not remove your splint; Keep splint clean, dry, and intact -Use crutches, knee scooter, or a walker to ambulate. -Elevate and ice operative leg to help reduce swelling and control pain. -Take pain medications as prescribed. -Follow-up appointment with Dr. Martin in the office in 1 week for a soft tissue check. -Call the office with any questions or concerns, pt will be sent home with a rolling walker Discharge Disposition: HOME SELF-CARE
[2018-12-08] MEDS ORDERED: PANTOPRAZOLE 40 MG TABLET PO SCH (07:30)
== END 2018-12-07 16:50 | disposition home or self-care (01) | DRG 563 ==
LOC: EC 20:29 → OBSVTOIN 23:44 → 3NMEDONC 23:44
PROVIDERS: ADMIT Orthopaedic Surgery Sports Medicine; ATTEND Orthopaedic Surgery Sports Medicine
PROC: 0QSGXZZ Reposition Right Tibia, External Approach (ICD-10-PCS; 2018-12-06)
PROC: 2W3LX1Z Immobilization of Right Lower Extremity using Splint (ICD-10-PCS; 2018-12-06)
PROC: 0QSJXZZ Reposition Right Fibula, External Approach (ICD-10-PCS; principal; 2018-12-06 16:20)
DX: S82.851A Displaced trimalleolar fracture of right lower leg, initial encounter for closed fracture (principal); E66.01 Morbid (severe) obesity due to excess calories; S93.04XA Dislocation of right ankle joint, initial encounter; D72.829 Elevated white blood cell count, unspecified; E03.9 Hypothyroidism, unspecified; I10 Essential (primary) hypertension; K21.9 Gastro-esophageal reflux disease without esophagitis; Z79.82 Long term (current) use of aspirin; Z79.890 Hormone replacement therapy; Z91.81 History of falling; Z79.899 Other long term (current) drug therapy; Z88.0 Allergy status to penicillin; Z90.49 Acquired absence of other specified parts of digestive tract; Z98.51 Tubal ligation status; Z68.39 Body mass index [BMI] 39.0-39.9, adult; Z82.49 Family history of ischemic heart disease and other diseases of the circulatory system; Z80.9 Family history of malignant neoplasm, unspecified; W10.9XXA Fall (on) (from) unspecified stairs and steps, initial encounter; Y92.009 Unspecified place in unspecified non-institutional (private) residence as the place of occurrence of the external cause
CPT/HCPCS: 27818; 36415; 80048; 85025; 85610; 85730; 93005; 96361; 96374; 96375; 99285

== ENCOUNTER 2018-12-20 07:21 | Observation (INO) | payer BC ==
[2018-12-15 11:32] VITALS: BMI 39.1
[~2018-12-20 07:21] MED LIST changes: +CLINDAMYCIN 900 MG in DEXTROSE 5% IN WATER 50 ML IVPB ONE; +DEXAMETHASONE SOD PHOSPHATE 10 MG/ML 1 ML VIAL IV ONE; -LACTATED RINGERS 1,000 ML IV SCH; +ONDANSETRON 4 MG/2 ML VIAL IVP ONE; +SCOPOLAMINE 1.5MG/72HR PATCH TRANSDERM ONE
[2018-12-20] MEDS: LACTATED RINGERS 1,000 ML IV SCH ×2 (08:04→18:08)
[2018-12-20] MEDS ORDERED: MIDAZOLAM 2 MG/2 ML VIAL IV ONE (09:13)
[2018-12-20] MEDS ORDERED: fentaNYL (PF) 50 MCG/ML 2 ML AMP IV ONE (09:13)
[2018-12-20] MEDS ORDERED: fentaNYL (PF) 50 MCG/ML 2 ML AMP ONE (10:21)
[2018-12-20] MEDS ORDERED: MIDAZOLAM 2 MG/2 ML VIAL ONE (10:21)
[2018-12-20] MEDS ORDERED: LIDOCAINE 1% INJ 10MG/ML (20 ML MDV) ONE (10:21)
[2018-12-20] MEDS ORDERED: NEOSTIGMINE 1 MG/ML 10 ML VIAL ONE (10:21)
[2018-12-20] MEDS ORDERED: ePHEDrine SULFATE/0.9% NACL/PF 50 MG/5 ML SYRINGE IV ONE (10:21)
[2018-12-20] MEDS ORDERED: GLYCOPYRROLATE 0.2 MG/ML 2 ML VIAL ONE (10:21)
[2018-12-20] MEDS ORDERED: PROPOFOL 10 MG/ML 20 ML VIAL IV ONE (10:21)
[2018-12-20] MEDS ORDERED: ROCURONIUM BROMIDE 10 MG/ML 10 ML VIAL IV ONE (10:21)
--- NOTE | 2018-12-20 11:21 | P.ONQ ---
Anesthesiology Proc Note - PNB - Peripheral Nerve Block Performed Right Popliteal Single Time Out Performed: Yes (922) Procedure Start Time: :12 Procedure Stop Time: :20 Indication: Acute Post-Operative Pain, Analgesia Sedation Type: Sedate with meaningful contact maintained Preparation: Sterile Dressing Position: Supine Catheter: None Needle Types: On-Q Needle Size: 100mm (4") Needle Gauge: 20 Technique: Ultrasound Injectate: 0.5% Ropivacaine (see comment for volume) Blood Aspirated: No Pain Paresthesia on Injection Noted: No Resistance on Injection: Normal Events: Uneventful and Well Tolerated
[2018-12-20] MEDS ORDERED: ONDANSETRON 4 MG/2 ML VIAL IVP PRN (12:53)
[2018-12-20] MEDS ORDERED: HYDROmorphone 0.5 MG/0.5 ML SYRINGE IVP PRN ×2 (12:53)
[2018-12-20] MEDS ORDERED: HYDROcodone/APAP 5-325MG 1 EACH TAB PO PRN (12:53)
[2018-12-20] MEDS: HYDROmorphone 0.5 MG/0.5 ML SYRINGE IVP PRN ×3 (13:10→16:07)
--- NOTE | 2018-12-20 13:12 | P.OP ---
Date of Procedure: 12/20/18 Preoperative Diagnosis: Closed right trimalleolar ankle fracture dislocation Postoperative Diagnosis: Same Procedure(s) Performed: 1. Open reduction and internal fixation of right trimalleolar ankle fracture (open reduction internal fixation of medial and lateral malleolus, nonoperative management posterior malleolus) 2. Manual application of joint stress by physician for radiography, right ankle 3. Application of short leg splint by physician, right ankle Anesthesia: MAYITO, regional Surgeon: Dyllan Martin Rn Endoscopy #1: Chayito Ni Estimated Blood Loss (ml): 25 IV fluids (ml): 950 Pathology: none sent Condition: stable Disposition: PACU Indications for Procedure: The patient is very pleasant previously healthy 53-year-old female who sustained a right ankle fracture dislocation about 2 weeks ago when she fell down some stairs. She was initially admitted to the hospital and my partner Dr. Loredo was consulted for trimalleolar ankle fracture. She was taken to the operating room by myself and was found to be too swollen to safely perform surgery shows she was placed in a splint and was discharged to follow-up in my office. I saw her at the end of last week and she had the beginning of wrinkling in the skin. We decided that it was safe to undergo surgery. We reviewed her x-rays and computed tomography scan which showed a highly comminuted fibula fracture and a grossly unstable trimalleolar ankle fracture. We discussed the need for operative fixation. With a lengthy discussion on the potential risks and complications of surgery including but not limited to risk of anesthesia, superficial infection, deep infection, delayed wound healing, superficial wound necrosis, deep wound necrosis, fracture nonunion, fracture malunion, hardware failure, postoperative displacement of the ankle mortise, nonanatomic reduction of the syndesmosis or ankle mortise, post traumatic arthritis, symptoms hardware, DVT, PE, damage to local blood vessels or nerves, and inability to regain preinjury level of function, generalized to satisfaction with surgery, need for further surgery including an ankle fusion or replacement, and possibly loss of life or limb. The patient voiced her understanding of these potential complications and provided her verbal and written consent to go forward with surgery. Description of Procedure: The patient was identified in preoperative holding and the correct right ankle was marked with my initials. The splint was taken down and she was found to have wrinkling of the skin. I reviewed the consent form with the patient in all for questions were answered. The patient was given a popliteal and saphenous nerve block by anesthesia. She was then brought back to the operating room where general anesthetic and preoperative antibiotics were administered. She was positioned on the OR table and a tourniquet was applied to the proximal aspect of the right leg. A bump was placed on the right buttock internally rotate the leg to neutral. The left leg was secured to the table with foam and tape. Prior to securing the left leg a mortise view was taken to use as a template for reducing her right ankle. The right leg was then prepped and dr aped in the standard sterile fashion. Her to starting surgery timeout was performed identifying the correct patient, operative extremity, and procedure. The patient's leg was then elevated, exsanguinated with an Esmarch bandage, and the tourniquet was inflated to 250 mmHg. I began by outlining medial and lateral incisions over the malleoli. The lateral incision was made first with a 15 blade scalpel. Dissection was carried down carefully to the subcu in his tissue with tenotomy scissors. The fascia over the peroneal muscles was incised proximally in line with the skin incision. A branch of the superficial peroneal nerve was identified and carefully retracted. Distally the periosteum over the lateral malleolus was sharply elevated. The fracture was encountered and found to be highly comminuted. There were multiple small intercalary fragments that were too small to accommodate lag screws. Due to the amount of comminution I elected to use a bridge plating construct. Prior to placing hardware laterally the medial malleolus was addressed. The skin incision over the medial Malson was made with a 15 blade scalpel. Dissection was carried down to the subcutaneous tissue with tenotomy scissors. The periosteum over the medial malleolus was sharply elevated. The fracture was identified and intervening soft tissue was removed with a Jeevan. A 2.0 mm drill bit was used to create a unicortical perforation just proximal to the fracture. The medial malleolus fragment was teased into place with a dental pick and 1 diego of a [id number] reduction clamp was placed and the 2.0 mm drill hole and the other diego was placed to the tip of the medial malleolus. Fluoroscopy was used to verify reduction. Clinically the medial shoulder of the ankle mortise appeared to be anatomically reduced with no step-offs. I then placed nonlocking 3.5 mm screws anterior and discharge her to the diego of the clamp on the medial malleolus. The more posterior screw was bicortical. The reduction clamp was removed and the reduction held. Attention was then turned back to the lateral aspect of the ankle. A [id number] reduction clamp was used to gently pull the fibula out to length. Once it appeared symmetric to the comparison view it was pinned into place with a 0.0625 K wire. A precontoured distal fibular locking plate was placed over the lateral malleolus. The level of comminution proximally was marked out and a nonlocking 3.5 mm screw was placed just proximal to this bringing the plate down to bone. The plate was centered over the proximal fibula and an additional 2 nonlocking 3.5 mm screws were placed. Attention was then turned distally. A nonlocking 2.7 mm screw was placed through the distal cluster of holes bringing the plate down to bone. I then proceeded to place an additional 4 locking 2.7 mm screws into the distal fragment. The nonlocking 2.7 mm screw was exchanged out for a locking screw. The comminution was left as the plate nicely bridged the fibular fractures and the fracture fragments were too small to accommodate lag screw fixation. Final fluoroscopic images were taken including a true mortise view which showed an anatomic reduction of the ankle mortise. There is no widening of the medial clear space. A manual external rotation stress x-ray was performed which showed no widening of the medial clear space or incisura. I interpreted this as a stable ankle not requiring syndesmotic fixation. A true talar dome overlap lateral was taken and showed minimal displacement of the posterior malleolus and the talus was centered under the tibial plafond. Both wounds were copiously irrigated and closed in layers with 0 Vicryl for the periosteal layer, 2-0 Vicryl for the deep subcu, and a running 3-0 Monocryl subcuticular stitch for the skin. The skin incisions were reinforced with prompt return stretchy Steri-Strips. I verified that all instrument, sponge, and sharp counts were correct. A sterile dressing consisting of Betadine soaked Adaptic, 4 x 4, and web rolls applied. The tourniquet was let down and the drapes were removed. A well-padded bulky Baeza splint was placed with the ankle in neutral. The patient was then awoken from her anesthetic, transferred to a gurney, and brought to recovery entire procedure well. Chayito Lunsford PA-C was required as a skilled law office assistant for patient positioning, surgical exposure, reduction of fracture, placement of hardware, closure of wound, and application of splint. Plan: The patient is going to be admitted overnight for pain control, 2 doses of postoperative antibiotics, and physical therapy assessment for gait training. She'll receive 2 doses of postoperative antibiotics. While she is in the hospital should be treated with Lovenox for DVT prophylaxis and will be di scharged home on aspirin. She is remain strictly nonweightbearing on her right leg. The splint is to remain in place at all times. We will obtain nonweightbearing x-rays of the left foot due to pain and bruising. The patient can discharge home when her pain is controlled, she passes physical therapy, and is medically stable.
--- NOTE | 2018-12-20 13:16 | XR ---
EXAMINATION TYPE: XR ankle complete RT DATE OF EXAM: 12/20/2018 COMPARISON: NONE HISTORY: Postop TECHNIQUE: 2 views submitted FINDINGS: Postsurgical change in near-anatomic alignment. IMPRESSION: Postop
--- NOTE | 2018-12-20 13:17 | XR ---
EXAMINATION TYPE: XR foot complete LT DATE OF EXAM: 12/20/2018 COMPARISON: NONE HISTORY: Intraoperative fluoroscopy TECHNIQUE: One image submitted FINDINGS: Single image of the third fourth and fifth metatarsals is obtained with limited resolution. IMPRESSION: Intraoperative fluoroscopy
--- NOTE | 2018-12-20 13:18 | FL ---
EXAMINATION TYPE: FL guidance operating room DATE OF EXAM: 12/20/2018 HISTORY: Flouroscopy time 46 seconds of fluoroscopy provided. IMPRESSION: 1. Fluoroscopy time.
[2018-12-20 15:12] LABS: Basophils % (A) 0 %; Eosinophils % (A) 0 %; HCT 38.3 % (34.0-46.0); Lymphocytes # (A) 0.6 k/uL (1.0-4.8); Lymphocytes % (A) 7 %; MCH 28.8 pg (25.0-35.0); MCHC 31.3 g/dL (31.0-37.0); MCV 91.9 fL (80.0-100.0); Mean Platelet Volume 6.7; Monocytes # (A) 0.1 k/uL (0-1.0); Monocytes % (A) 2 %; Neutrophils # (A) 7.7 k/uL (1.3-7.7); Neutrophils % (A) 91 %; Platelet Count 419 k/uL (150-450); RBC 4.17 m/uL (3.80-5.40); RDW 13.1 % (11.5-15.5); WBC 8.5 k/uL (3.8-10.6)
--- NOTE | 2018-12-20 15:33 | P.CONS ---
History of Present Illness - Reason for Consult Consult date: 12/20/18 Medical management of hypertension hypothyroidism anxiety and depression Requesting physician: Dyllan Martin - Chief Complaint Medical management - History of Present Illness The patient is a 53-year-old obese female with a past medical history of essential hypertension hypothyroidism anxiety and depression who is admitted to the primary orthopedic service and is postop day #0 after having a ORIF of a right trimalleolar ankle fracture secondary to a previously diagnosed right trimalleolar ankle fracture with dislocation sustained approximately 2 weeks ago after the patient reportedly fell down a flight of stairs. The patient currently denies any chest pain or shortness of breath, she previously had some nausea that has been resolved since receiving antiemetics. The patient reports a 8/10 throbbing pulsating right ankle pain but otherwise has no complaints. Review of records indicates the patient is hemodynamically stable, she is normotensive with appropriate saturations on 2 L via nasal cannula. She is currently receiving perioperative antibiotics with clindamycin and his pain regimen that includes Dilaudid and Valmy. Review of Systems Pertinent positive as per HPI all other systems otherwise negative Past Medical History Past Medical History: Hypertension, Thyroid Disorder Additional Past Medical History / Comment(s): seasonal allergies History of Any Multi-Drug Resistant Organisms: None Reported Past Surgical History: Cholecystectomy, Tonsillectomy, Tubal Ligation, Uterine Ablation Additional Past Surgical History / Comment(s): nose surgery 2014 Past Anesthesia/Blood Transfusion Reactions: Previous Problems w/ Anesthesia, Family History of Problems w/ Anesthesia Additional Past Anesthesia/Blood Transfusion Reaction / Comm: states "feels agitated and panicky with anesthesia.". mother hallucinated, anxious, disoriented Past Psychological History: No Psychological Hx Reported Smoking Status: Never smoker Past Alcohol Use History: Occasional Past Drug Use History: None Reported - Past Family History Mother Family Medical History: Cancer, Coronary Artery Disease (CAD) Additional Family Medical History / Comment(s): CABG Father Family Medical History: Cancer, Coronary Artery Disease (CAD) Additional Family Medical History / Comment(s): CABG Brother(s) Family Medical History: AFIB Medications and Allergies Home Medications Medication Instructions Recorded Confirmed Type Citalopram Hydrobromide 40 mg PO QAM 12/29/16 12/20/18 History [Citalopram HBr] Diltiazem HCl [Diltiazem 12Hr ER] 120 mg PO QAM 12/29/16 12/20/18 History Enalapril [Vasotec] 20 mg PO QAM 12/29/16 12/20/18 History Levothyroxine Sodium [Synthroid] 200 mcg PO QAM 12/29/16 12/20/18 History Liothyronine Sodium [Cytomel] 5 mcg PO QAM 12/29/16 12/20/18 History Montelukast [Singulair] 10 mg PO QAM 12/29/16 12/20/18 History Multivitamin [Multivitamins Adult 1 tab PO DAILY 12/29/16 12/20/18 History Gummies] Levocetirizine Dihydrochloride 5 mg PO HS 12/06/18 12/20/18 History [Xyzal] Cholecalciferol [Vitamin D3] 4,000 unit PO DAILY 12/15/18 12/20/18 History HYDROcodone/APAP 10-325MG [Valmy 1 tab PO Q6HR PRN 12/15/18 12/20/18 History 10-325] ALPRAZolam [Xanax] 0.25 mg PO DAILY PRN 12/20/18 12/20/18 History Allergies Allergy/AdvReac Type Severity Reaction Status Date / Time amoxicillin Allergy Unknown Verified 12/20/18 07:40 Penicillins Allergy Anaphylaxis Verified 12/20/18 07:40 Physical Exam Vitals: Vital Signs Temp Pulse Pulse Pulse Resp BP BP 12/20/18 14:35 82 123/76 12/20/18 14:20 76 109/71 12/20/18 14:10 12/20/18 14:04 98.6 F 83 20 111/66 12/20/18 13:45 77 16 115/56 12/20/18 13:30 77 16 120/55 12/20/18 13:15 76 12 112/53 12/20/18 13:00 79 12 134/60 12/20/18 12:51 97.9 F 87 12 127/60 12/20/18 07:36 98.3 F 88 16 139/61 Pulse Ox 12/20/18 14:35 95 12/20/18 14:20 94 L 12/20/18 14:10 96 12/20/18 14:04 91 L 12/20/18 13:45 98 12/20/18 13:30 98 04/17/19 13:15 98 12/20/18 13:00 98 12/20/18 12:51 98 12/20/18 07:36 97 Intake and Output 12/20/18 12/20/18 12/20/18 06:59 14:59 22:59 Intake Total 1456 Output Total 25 Balance 1431 Intake: IV 1456 Output: Estimated Blood Loss 25 Constitutional: No acute distress, conversant, pleasant Eyes: Anicteric sclerae, moist conjunctiva, no lid-lag, PERRLA ENMT: NC/AT,Oropharynx clear, no erythema, exudates Neck:Supple, FROM, no masses, or JVD, No carotid bruits; No thyromegaly Lungs: Clear to auscultation, Clear to percussion, Normal respiratory effort, no accessory muscle use Cardiovascular: Heart regular in rate and rhythm, No murmurs, gallops, or rubs no peripheral edema Abdominal: Soft Nontender, nom distended, no guarding, no rebound or rigidity, Normoactive bowel sounds No hepatomegaly, No splenomegaly, No palpable mass No abdominal wall hernia noted Skin: Normal temperature, tone, texture, turgor, No induration No subcutaneous nodules, No rash, lesions, No ulcers Extremities: The patient is able to wiggle all her toes on both lower extremities, right lower extremity is splinted and dressed, she appears neurovascularly intact Psychiatric: Alert and oriented to person, place and time, Appropriate affect Intact judgement Neuro: Muscles Strength 5/5 in all 4 extremities, Sensation to light touch grossly present throughout, Cranial nerves II-XII grossly intact. No focal se nsory deficits Results CBC & Chem 7: 12/20/18 15:02 Labs: Abnormal Lab Results - Last 24 Hours (Table) 12/20/18 Range/Units 15:02 Lymphocytes # 0.6 L (1.0-4.8) k/uL Assessment and Plan (1) Essential hypertension Current Visit: Yes Status: Acute Code(s): I10 - ESSENTIAL (PRIMARY) HYPERTENSION SNOMED Code(s): 39782171 (2) Hypothyroidism Current Visit: Yes Status: Acute Code(s): E03.9 - HYPOTHYROIDISM, UNSPECIFIED SNOMED Code(s): 90616668 (3) Depression with anxiety Current Visit: Yes Status: Acute Code(s): F41.8 - OTHER SPECIFIED ANXIETY DISORDERS SNOMED Code(s): 07410331 (4) GERD (gastroesophageal reflux disease) Current Visit: No Status: Acute Code(s): K21.9 - GASTRO-ESOPHAGEAL REFLUX DISEASE WITHOUT ESOPHAGITIS SNOMED Code(s): 009315513 (5) Trimalleolar fracture of right ankle Current Visit: No Status: Acute Code(s): S82.851A - DISPLACED TRIMALLEOLAR FRACTURE OF RIGHT LOWER LEG, INIT SNOMED Code(s): 783572709 Plan: The patient is admitted to the primary orthopedic service and is status post ORIF of right trimalleolar ankle fracture with dislocation, will plan to defer all ongoing analgesic therapy to the primary orthopedic service. Medically speaking the patient is stable. We'll plan to resume all her home medications. Agree with continuing Lovenox for DVT prophylaxis As a patient is high risk for DVT. We'll plan to follow with you I appreciate opportunity to be involved in this patient's care, further questions please do not hesitate to contact the [facility] inpatient team Time with Patient: Greater than 30
[2018-12-20] MEDS ORDERED: ceFAZolin IN SWFI 2 GM/20 ML SYRINGE IVP SCH (16:00)
--- NOTE | 2018-12-20 16:19 | XR ---
EXAMINATION TYPE: XR foot complete LT DATE OF EXAM: 12/20/2018 CLINICAL HISTORY: Left foot pain after injury. TECHNIQUE: Frontal, lateral, and oblique images of the left foot are obtained. COMPARISON: None FINDINGS: Demineralization is present. There is no acute fracture/dislocation evident in the left fo ot. Flexion in the toes is present. The joint spaces in the left foot appear within normal limits. Th ere is small to moderate size inferior calcaneal spur. There is diffuse mild plantar surface subcutan eous edema. IMPRESSION: There is no acute fracture or dislocation in the left foot.
[2018-12-20] MEDS ORDERED: ALPRAZolam 0.25 MG TAB PO PRN (18:33)
[2018-12-20] MEDS: LORATADINE 10 MG TAB PO SCH (19:58)
[2018-12-20] MEDS: CLINDAMYCIN 900 MG in DEXTROSE 5% IN WATER 50 ML IVPB SCH ×2 (19:58)
[2018-12-20] MEDS: hydrOXYzine PAMOATE 25 MG CAP PO PRN (19:58)
[2018-12-20] MEDS: HYDROcodone/APAP 5-325MG 1 EACH TAB PO PRN (19:59)
[2018-12-21] MEDS: HYDROmorphone 1 MG/ML 1 ML SYRINGE IVP PRN ×6 (00:30→23:45)
[2018-12-21] MEDS: hydrOXYzine PAMOATE 25 MG CAP PO PRN (03:03)
[2018-12-21] MEDS: HYDROcodone/APAP 5-325MG 1 EACH TAB PO PRN ×3 (03:03→15:27)
[2018-12-21] MEDS: CLINDAMYCIN 900 MG in DEXTROSE 5% IN WATER 50 ML IVPB SCH ×2 (03:07)
[2018-12-21] MEDS: LACTATED RINGERS 1,000 ML IV SCH ×2 (05:03→07:07)
[2018-12-21] MEDS: LEVOTHYROXINE 100 MCG TAB PO SCH (07:21)
[2018-12-21] MEDS: CITALOPRAM HYDROBROMIDE 20 MG TAB PO SCH (09:05)
[2018-12-21] MEDS: DILTIAZEM CD 120 MG CAP.ER.24H PO SCH (09:05)
[2018-12-21] MEDS: MONTELUKAST 10 MG TAB PO SCH (09:05)
[2018-12-21] MEDS: LISINOPRIL 20 MG TAB PO SCH (09:05)
[2018-12-21] MEDS: MULTIVITAMINS, THERA 1 EACH TAB PO SCH (09:06)
[2018-12-21] MEDS: LIOTHYRONINE SODIUM 5 MCG TAB PO SCH (09:06)
[2018-12-21] MEDS: CHOLECALCIFEROL 1,000 UNIT TAB PO SCH (09:06)
[2018-12-21] MEDS: ENOXAPARIN 40 MG/0.4 ML SYRINGE SQ SCH (09:06)
--- NOTE | 2018-12-21 09:29 | P.PN ---
Subjective Progress Note Date: 12/21/18 Patient seen and examined at bedside, having ongoing issues with pain related to that it had a 10 right lower extremity ankle throbbing and pulsating, patient afebrile overnight he remains hemodynamically stable. No acute events overnight Objective - Vital Signs Vital signs: Vital Signs Temp 98.0 F 12/21/18 07:00 Pulse 80 12/21/18 07:00 Resp 16 12/21/18 07:00 BP 116/75 12/21/18 07:00 Pulse Ox 94 L 12/21/18 07:00 Intake & Output 12/20/18 12/21/18 12/21/18 18:59 06:59 18:59 Intake Total 1456 400 Output Total 25 Balance 1431 400 Intake: IV 1456 Intake, IV Titration 400 Amount Clindamycin 900 mg In 50 Dextrose 5% in Water 50 ml @ 50 mls/hr IVPB Q8H [facility] Rx#:[id number] Lactated Ringers 1,000 ml 350 @ 100 mls/hr IV .Q10H [facility] Rx#:[id number] Output: Estimated Blood Loss 25 Other: # Voids 2 3 - Exam Constitutional: No acute distress, conversant, pleasant Eyes: Anicteric sclerae, moist conjunctiva, no lid-lag, PERRLA ENMT: NC/AT,Oropharynx clear, no erythema, exudates Neck:Supple, FROM, no masses, or JVD, No carotid bruits; No thyromegaly Lungs: Clear to auscultation, Clear to percussion, Normal respiratory effort, no accessory muscle use Cardiovascular: Heart regular in rate and rhythm, No murmurs, gallops, or rubs no peripheral edema Abdominal: Soft Nontender, nom distended, no guarding, no rebound or rigidity, Normoactive bowel sounds No hepatomegaly, No splenomegaly, No palpable mass No abdominal wall hernia noted Skin: Normal temperature, tone, texture, turgor, No induration No subcutaneous nodules, No rash, lesions, No ulcers Extremities: The patient is able to wiggle all her toes on both lower extremities, right lower extremity is splinted and dressed, she appears neurovascularly intact Psychiatric: Alert and oriented to person, place and time, Appropriate affect Intact judgement Neuro: Muscles Strength 5/5 in all 4 extremities, Sensation to light touch grossly present throughout, Cranial nerves II-XII grossly intact. No focal sensory deficits - Labs CBC & Chem 7: 12/20/18 15:02 Labs: Abnormal Lab Results - Last 24 Hours (Table) 12/20/18 Range/Units 15:02 Lymphocytes # 0.6 L (1.0-4.8) k/uL Assessment and Plan (1) Essential hypertension Narrative/Plan: * Blood pressure stable controlled * Continue current home regimen Current Visit: Yes Status: Acute Code(s): I10 - ESSENTIAL (PRIMARY) HYPERTE NSION SNOMED Code(s): 02722749 (2) Hypothyroidism Narrative/Plan: * Continue home levothyroxine and Cytomel dose Current Visit: Yes Status: Acute Code(s): E03.9 - HYPOTHYROIDISM, UNSPECIFIED SNOMED Code(s): 29257849 (3) Depression with anxiety Narrative/Plan: * Continue home regimen Current Visit: Yes Status: Acute Code(s): F41.8 - OTHER SPECIFIED ANXIETY DISORDERS SNOMED Code(s): 34085290 (4) GERD (gastroesophageal reflux disease) Current Visit: No Status: Acute Code(s): K21.9 - GASTRO-ESOPHAGEAL REFLUX DISEASE WITHOUT ESOPHAGITIS SNOMED Code(s): 724328644 (5) Trimalleolar fracture of right ankle Narrative/Plan: * Patient appears to be doing well he was a transfer to the [facility] on her own * Having ongoing issues with pain at this time primary orthopedic service adjusting pain regimen * Current Visit: No Status: Acute Code(s): S82.851A - DISPLACED TRIMALLEOLAR FRACTURE OF RIGHT LOWER LEG, INIT SNOMED Code(s): 568565259 Plan: * Disposition * Patient is doing well and medically stable for discharge * anticipate discharged today or tomorrow
--- NOTE | 2018-12-21 12:37 | P.PN ---
Subjective Progress Note Date: 12/21/18 This patient is a 53 year old female that presented the [facility] yesterday for a scheduled open reduction and internal fixation of a right trimalleolar ankle fracture. The patient sustained this fracture about two weeks ago, when she was admitted to [facility] under the care of Dr. Loredo. She was taken to the operating room, where her ankle was found to be too swollen to perform surgery safely, therefore she was placed into a bulky Baeza split and followed up with Dr. Martin in the office until her swelling decreased. The patient underwent an open reduction and internal fixation of the right trimalleolar ankle fracture yesterday with Dr. Martin. Today is post-operative day #2. The patient states she is experiencing quite a bit of pain in the right ankle this morning, she describes the pain as achy. She has not yet been up with physical therapy. She is tolerating her diet well. Patient had expressed concern yesterday about left foot pain she has started to experience last week, therefore a left foot x-ray was obtained yesterday. She denies pain in the left foot currently, she notes it is only painful when she puts her weight on it. There was no injury she knows of to the left foot. She denies chest pain, shortness of breath, nausea, or vomiting. She has no new complaints or concerns this morning. Vital signs stable. Objective - Vital Signs Vital signs: Vital Signs Temp 98.0 F 12/21/18 07:00 Pulse 80 12/21/18 07:00 Resp 16 12/21/18 07:00 BP 116/75 12/21/18 07:00 Pulse Ox 94 L 12/21/18 07:00 Intake & Output 12/20/18 12/21/18 12/21/18 18:59 06:59 18:59 Intake Total 1456 400 Output Total 25 Balance 1431 400 Intake: IV 1456 Intake, IV Titration 400 Amount Clindamycin 900 mg In 50 Dextrose 5% in Water 50 ml @ 50 mls/hr IVPB Q8H [facility] Rx#:[id number] Lactated Ringers 1,000 ml 350 @ 100 mls/hr IV .Q10H [facility] Rx#:[id number] Output: Estimated Blood Loss 25 Other: # Voids 2 3 - Exam On examination, the patient is sitting up in bed in no apparent distress. She is alert and orientated x3. On inspection of the right lower extremity, there is bu lky Baeza splint in place. The splint is clean, dry and intact. Her toes are warm and well-perfused with brisk refill. Sensation is intact to light touch the toes. Patient is able to flex and extend her toes without difficulty. Neurovascular status is intact of the right lower extremity. Lower extremity compression cuff is in place on the left lower extremity. The left calf is soft and non-tender to palpation. - Labs CBC & Chem 7: 12/20/18 15:02 Labs: Abnormal Lab Results - Last 24 Hours (Table) 12/20/18 Range/Units 15:02 Lymphocytes # 0.6 L (1.0-4.8) k/uL - Imaging and Cardiology Left foot x-ray 12/20/18: No acute fractures. No acute bony abnormalities. Assessment and Plan Assessment: Right trimalleoluar ankle fracture, s/p open reduction internal fixation on 12/21/[address] Martin. Post-operative day #1. Plan: - Strict non-weight bearing on the operative leg. Keep splint clean, dry, and intact. - Ice and elevate operative leg to decrease pain and swelling. - Left foot x-rays negative for acute fractures or abnormalities. Recommended a stiff-sole athletic shoe or post-operative shoe, ice, and elevation of left foot. - [place] for pain management, Dilaudid as needed. - Lovenox while she remains inpatient for anti-coagulation, aspirin on discharge. - 2 doses of post- operative antibiotics complete. - PT/OT for gait and balance training. - Internal medicine consulted for assistance with medical management. - Anticipate discharge home within next 24-48 hours, pending medical clearance. Patient discussed with Dr. Martin.
[2018-12-21] MEDS: LORATADINE 10 MG TAB PO SCH (20:05)
[2018-12-22] MEDS: hydrOXYzine PAMOATE 25 MG CAP PO PRN ×5 (03:08→22:00)
[2018-12-22] MEDS: HYDROcodone/APAP 5-325MG 1 EACH TAB PO PRN (03:08)
[2018-12-22] MEDS: LEVOTHYROXINE 100 MCG TAB PO SCH (05:29)
[2018-12-22] MEDS: CITALOPRAM HYDROBROMIDE 20 MG TAB PO SCH (07:22)
[2018-12-22] MEDS: MULTIVITAMINS, THERA 1 EACH TAB PO SCH (07:22)
[2018-12-22] MEDS: ENOXAPARIN 40 MG/0.4 ML SYRINGE SQ SCH (07:22)
[2018-12-22] MEDS: LISINOPRIL 20 MG TAB PO SCH (07:22)
[2018-12-22] MEDS: CHOLECALCIFEROL 1,000 UNIT TAB PO SCH (07:22)
[2018-12-22] MEDS: MONTELUKAST 10 MG TAB PO SCH (07:22)
[2018-12-22] MEDS: HYDROmorphone 1 MG/ML 1 ML SYRINGE IVP PRN (07:23)
[2018-12-22] MEDS: DILTIAZEM CD 120 MG CAP.ER.24H PO SCH (07:28)
[2018-12-22] MEDS: LIOTHYRONINE SODIUM 5 MCG TAB PO SCH (07:28)
[2018-12-22] MEDS: SENNOSIDES-DOCUSATE SODIUM 1 EACH TAB PO PRN (07:28)
[2018-12-22] MEDS: HYDROcodone/APAP 10-325MG 1 EACH TAB PO PRN ×4 (09:44→21:58)
--- NOTE | 2018-12-22 12:15 | P.PN ---
Subjective Progress Note Date: 12/22/18 Patient seen and examined at bedside, having ongoing issues with pain, regimen adjusted by ortho. Vitals hemodynamically stable Objective - Vital Signs Vital signs: Vital Signs Temp 97.6 F 12/22/18 07:00 Pulse 74 12/22/18 07:00 Resp 16 12/22/18 07:00 BP 132/73 12/22/18 07:00 Pulse Ox 96 12/22/18 07:00 Intake & Output 12/21/18 12/22/18 12/22/18 18:59 06:59 18:59 Intake Total 1350 280 Balance 1350 280 Intake: Intake, IV Titration 50 Amount Clindamycin 900 mg In 50 Dextrose 5% in Water 50 ml @ 50 mls/hr IVPB Q8H [facility] Rx#:[id number] Oral 1300 280 Other: Voiding Method Bedside Commode # Voids 1 3 - Exam Constitutional: No acute distress, conversant, pleasant Eyes: Anicteric sclerae, moist conjunctiva, no lid-lag, PERRLA ENMT: NC/AT,Oropharynx clear, no erythema, exudates Neck:Supple, FROM, no masses, or JVD, No carotid bruits; No thyromegaly Lungs: Clear to auscultation, Clear to percussion, Normal respiratory effort, no accessory muscle use Cardiovascular: Heart regular in rate and rhythm, No murmurs, gallops, or rubs no peripheral edema Abdominal: Soft Nontender, nom distended, no guarding, no rebound or rigidity, Normoactive bowel sounds No hepatomegaly, No splenomegaly, No palpable mass No abdominal wall hernia noted Skin: Normal temperature, tone, texture, turgor, No induration No subcutaneous nodules, No rash, lesions, No ulcers Extremities: The patient is able to wiggle all her toes on both lower extremities, right lower extremity is splinted and dressed, she appears neurovascularly intact Psychiatric: Alert and oriented to person, place and time, Appropriate affect Intact judgement Neuro: Muscles Strength 5/5 in all 4 extremities, Sensation to light touch grossly present throughout, Cranial nerves II-XII grossly intact. No focal sensory deficits - Labs CBC & Chem 7: 12/20/18 15:02 Assessment and Plan (1) Essential hypertension Narrative/Plan: * Blood pressure stable controlled * Continue current home regimen Current Visit: Yes Status: Acute Code(s): I10 - ESSENTIAL (PRIMARY) HYPERTENSION SNOMED Code(s): 43091270 (2) Hypothyroidism Narrative/Plan: * Continue home levothyroxine and Cytomel dose Current Visit: Yes Status: Acute Code(s): E03.9 - HYPOTHYROIDISM, UNSPECIFIED SNOMED Code(s): 18355208 (3) Depression with anxiety Narrative/Plan: * Continue home regimen Current Visit: Yes Status: Acute Code(s): F41.8 - OTHER SPECIFIED ANXIETY DISORDERS SNOMED Code(s): 62520687 (4) GERD (gastroesophageal reflux disease) Current Visit: No Status: Acute Code(s): K21.9 - GASTRO-ESOPHAGEAL REFLUX DISEASE WITHOUT ESOPHAGITIS SNOMED Code(s): 199490134 (5) Trimalleolar fracture of right ankle Narrative/Plan: * Patient appears to be doing well he was a transfer to the [facility] on her own * Having ongoing issues with pain at this time primary orthopedic service adjusting pain regimen * Current Visit: No Status: Acute Code(s): S82.851A - DISPLACED TRIMALLEOLAR FRACTURE OF RIGHT LOWER LEG, INIT SNOMED Code(s): 340002810 Plan: * Disposition * Patient is doing well and medically stable for discharge * anticipate discharged tomorrow will sign off today
--- NOTE | 2018-12-22 14:58 | P.PN ---
Subjective Progress Note Date: 12/22/18 This patient is a 53 year old female that presented the [facility] yesterday for a scheduled open reduction and internal fixation of a right trimalleolar ankle fracture. The patient sustained this fracture about two weeks ago, when she was admitted to [facility] under the care of Dr. Loredo. She was taken to the operating room, where her ankle was found to be too swollen to perform surgery safely, therefore she was placed into a bulky Baeza split and followed up with Dr. Martin in the office until her swelling decreased. The patient underwent an open reduction and internal fixation of the right trimalleolar ankle fracture yesterday with Dr. Martin. Today is post-operative day #2. Patient states she is more comfortable on her current pain control regimen. She states she feels more stable walking to the bathroom today, with help of the walker. She states she has been remaining non- weight bearing on the right ankle. She is tolerating her diet well. She denies chest pain, shortness of breath, nausea, or vomiting. She denies any complaints or concerns today. Vital signs stable. Objective - Vital Signs Vital signs: Vital Signs Temp 98.7 F 12/22/18 14:35 Pulse 81 12/22/18 14:35 Resp 16 12/22/18 14:35 BP 105/70 12/22/18 14:35 Pulse Ox 97 12/22/18 14:35 Intake & Output 12/21/18 12/22/18 12/22/18 18:59 06:59 18:59 Intake Total 1350 280 Balance 1350 280 Intake: Intake, IV Titration 50 Amount Clindamycin 900 mg In 50 Dextrose 5% in Water 50 ml @ 50 mls/hr IVPB Q8H [facility] Rx#:[id number] Oral 1300 280 Other: Voiding Method Bedside Commode # Voids 1 3 1 - Exam On examination, the patient is sitting up in bed in no apparent distress. She is alert and orientated x3. On inspection of the right lower extremity, there is bulky Baeza splint in place. The splint is clean, dry and intact. Her toes are warm and well-perfused with brisk refill. Sensation is intact to light touch the toes. Patient is able to flex and extend her toes without difficulty. Neurovascular status is intact of the right lower extremity. Lower extremity compression cuff is in place on the left lower extremity. The left calf is soft and non-tender to palpation. The left foot is non-tender to palpation. - Labs CBC & Chem 7: 12/20/18 15:02 Assessment and Plan Assessment: Right trimalleolar ankle fracture, s/p open reduction internal fixation on 12/20/[address] Martin. Post-operative day #2. Plan: - Strict non-weight bearing on the operative leg. Keep splint clean, dry, and intact. - Ice and elevate operative leg to decrease pain and swelling. - [place] for pain management, decrease use Dilaudid as tolerated. - Lovenox while she remains inpatient for anti-coagulation, aspirin on discha rge. - 2 doses of post- operative antibiotics complete. - PT/OT for gait and balance training. - Internal medicine consulted for assistance with medical management. - Anticipate discharge home tomorrow morning. Patient discussed with Dr. Martin.
[2018-12-22] MEDS: LORATADINE 10 MG TAB PO SCH (20:00)
[2018-12-23 01:48] VITALS: RESP 16
[2018-12-23] MEDS: HYDROcodone/APAP 10-325MG 1 EACH TAB PO PRN ×3 (02:03→09:47)
[2018-12-23] MEDS: hydrOXYzine PAMOATE 25 MG CAP PO PRN ×3 (02:06→09:49)
[2018-12-23] MEDS: LEVOTHYROXINE 100 MCG TAB PO SCH (05:58)
[2018-12-23 07:54] VITALS: BP 145/74; PULSE 79; TEMP 97.8
[2018-12-23] MEDS: SENNOSIDES-DOCUSATE SODIUM 1 EACH TAB PO PRN (08:30)
[2018-12-23] MEDS: LISINOPRIL 20 MG TAB PO SCH (08:31)
[2018-12-23] MEDS: MULTIVITAMINS, THERA 1 EACH TAB PO SCH (08:31)
[2018-12-23] MEDS: MONTELUKAST 10 MG TAB PO SCH (08:31)
[2018-12-23] MEDS: CITALOPRAM HYDROBROMIDE 20 MG TAB PO SCH (08:31)
[2018-12-23] MEDS: ENOXAPARIN 40 MG/0.4 ML SYRINGE SQ SCH (08:31)
[2018-12-23] MEDS: CHOLECALCIFEROL 1,000 UNIT TAB PO SCH (08:31)
[2018-12-23] MEDS: DILTIAZEM CD 120 MG CAP.ER.24H PO SCH (08:32)
[2018-12-23] MEDS: LIOTHYRONINE SODIUM 5 MCG TAB PO SCH (08:32)
--- NOTE | 2018-12-23 09:58 | P.DS ---
Providers Date of admission: 12/21/18 06:10 Expected date of discharge: 12/23/18 Attending physician: Dyllan Martin Consults: 12/20/18 12:53 Consult Physician Routine Consulting Provider: Rachel Seals Consult Reason/Comments: Medical management Do you want consulting provider notified?: Yes Primary care physician: Lauro Patrick - Discharge Diagnosis(es) (1) Trimalleolar fracture of right ankle Current Visit: No Status: Acute (2) Essential hypertension Current Visit: Yes Status: Acute (3) Fall Current Visit: No Status: Acute Hospital Course: This is a pleasant 53-year-old female who presented with a closed right trimalleolar ankle fracture dislocation. She was admitted for open reduction internal fixation of right trimalleolar ankle fracture performed by Dr. Martin. The patient tolerated the procedure well and did well postoperatively. Her pain has been adequately controlled. She has kept her bulky Baeza dressing clean, dry, and intact. She feels she is ready for discharge home today. She states she has a wheelchair, a walker, and a ramp at home to aid in ambulation. She is able to have a bowel movement this morning. Condition on day of discharge stable. Patient will be discharged home. Patient was cleared preoperatively for surgery. Patient currently denies any nausea, vomiting, fever, or chills. Patient is eating and voiding freely without difficulty. Patient will remain strict nonweightbearing on the right lower extremity. She is encouraged to elevate and apply ice for comfort support as needed. She'll plan to follow up with Dr. Maritn in the outpatient setting approximately 2 weeks. Patient is given a prescription for [place] 10 mg #25 mg, aspirin 325 mg, and Colace 100 mg. She should take these medications as prescribed. Physical Exam on day of discharge: Patient is awake, alert, and oriented 3 Vital signs stable Good chest excursion with deep inspiration and expiration Abdomen soft nontender No signs or symptoms of DVT; no calf pain Bulky Baeza dressing intact over the right lower extremity Dressing is clean and dry with no evidence of active drainage Patient is able to wiggle toes the right lower extremities no significant difficulty Neurovascular intact right lower extremity No pain with palpation movement of the right knee Procedures: Open reduction internal fixation of right trimalleolar ankle fracture Patient Condition at Discharge: Stable Plan - Discharge Summary Discharge Rx Participant: Yes New Discharge Prescriptions: New HYDROcodone/APAP 10-325MG [[place] 10-325] 1 tab PO Q4-6H PRN 7 Days #40 tab PRN Reason: Pain Aspirin 325 mg PO DAILY #14 tab Docusate [Colace] 100 mg PO BID #60 capsule No Action Diltiazem HCl [Diltiazem 12Hr ER] 120 mg PO QAM Levothyroxine Sodium [Synthroid] 200 mcg PO QAM Citalopram Hydrobromide [Citalopram HBr] 40 mg PO QAM Montelukast [Singulair] 10 mg PO QAM Enalapril [Vasotec] 20 mg PO QAM Liothyronine Sodium [Cytomel] 5 mcg PO QAM Multivitamin [Multivitamins Adult Gummies] 1 tab PO DAILY Levocetirizine Dihydrochloride [Xyzal] 5 mg PO HS HYDROcodone/APAP 10-325MG [[place] 10-325] 1 tab PO Q6HR PRN PRN Reason: Pain Cholecalciferol [Vitamin D3] 4,000 unit PO DAILY ALPRAZolam [Xanax] 0.25 mg PO DAILY PRN PRN Reason: Anxiety Discharge Medication List Citalopram Hydrobromide [Citalopram HBr] 40 mg PO QAM 12/29/16 [History] Diltiazem HCl [Diltiazem 12Hr ER] 120 mg PO QAM 12/29/16 [History] Enalapril [Vasotec] 20 mg PO QAM 12/29/16 [History] Levothyroxine Sodium [Synthroid] 200 mcg PO QAM 12/29/16 [History] Liothyronine Sodium [Cytomel] 5 mcg PO QAM 12/29/16 [History] Montelukast [Singulair] 10 mg PO QAM 12/29/16 [History] Multivitamin [Multivitamins Adult Gummies] 1 tab PO DAILY 12/29/16 [History] Levocetirizine Dihydrochloride [Xyzal] 5 mg PO HS 12/06/18 [History] Cholecalciferol [Vitamin D3] 4,000 unit PO DAILY 12/15/18 [History] HYDROcodone/APAP 10-325MG [[place] 10-325] 1 tab PO Q6HR PRN 12/15/18 [History] ALPRAZolam [Xanax] 0.25 mg PO DAILY PRN 12/20/18 [History] Aspirin 325 mg PO DAILY #14 tab 12/22/18 [Rx] Docusate [Colace] 100 mg PO BID #60 capsule 12/22/18 [Rx] HYDROcodone/APAP 10-325MG [[place] 10-325] 1 tab PO Q4-6H PRN 7 Days #40 tab 12/22/18 [Rx] Follow up Appointment(s)/Referral(s): Dyllan Martin MD [Medical Doctor] - 2 Weeks Activity/Diet/Wound Care/Special Instructions: -Strict non-weight bearing on your operative leg. Do not remove your splint; Keep splint clean, dry, and intact -Use crutches, knee scooter, or a walker to ambulate after surgery. -Elevate and ice operative leg to help reduce swelling and control pain. -Take pain medications as prescribed. Take Colace as a stool softener. Take aspirin as prescribed for blood clot prevention. -Follow-up appointment with Dr. Martin in the office in 2 weeks. -Call the office with any questions or concerns, Discharge Disposition: HOME SELF-CARE
== END 2018-12-23 11:52 | disposition home or self-care (01) ==
LOC: OR 07:21 → 4SSUR 12:51 → OR 12-21 06:02 → 4SSUR 12-21 06:10
PROVIDERS: ADMIT Orthopaedic Surgery; ATTEND Orthopaedic Surgery
DX: S82.851A Displaced trimalleolar fracture of right lower leg, initial encounter for closed fracture (principal); I10 Essential (primary) hypertension; E66.9 Obesity, unspecified; Z68.39 Body mass index [BMI] 39.0-39.9, adult; E03.9 Hypothyroidism, unspecified; E07.9 Disorder of thyroid, unspecified; J30.2 Other seasonal allergic rhinitis; F41.8 Other specified anxiety disorders; K21.9 Gastro-esophageal reflux disease without esophagitis; Z88.0 Allergy status to penicillin; Z79.899 Other long term (current) drug therapy; Z79.890 Hormone replacement therapy; W10.9XXA Fall (on) (from) unspecified stairs and steps, initial encounter; Z98.51 Tubal ligation status; Z82.49 Family history of ischemic heart disease and other diseases of the circulatory system
CPT/HCPCS: 97161; 64445; 85025; 73610; 73630; 27822; G0378 ×3; C1713; J2250; J1100; J2710; J2405; J2001; J1650 ×3; J3010; J1170 ×4; J2704

== ENCOUNTER → 2019-05-25 | Outpatient (CLI) | payer BC ==
--- NOTE | 2019-05-29 08:39 | MM ---
Reason for exam: screening (asymptomatic). Last mammogram was performed 1 year ago. History: Patient is nulliparous. Family history of breast cancer in mother at age 64. Benign MG stereo VAD BX LT of the left breast, November 14, 2017. Took hormonal contraceptives for 10 years. Physical Findings: A clinical breast exam by your physician is recommended on an annual basis and results should be correlated with mammographic findings. MG Screening Mammo w CAD Bilateral CC and MLO view(s) were taken. Prior study comparison: June 02, 2018, left breast MG diagnostic mammo LT w CAD. November 10, 2017, left breast MG work up mamm w CAD LT. November 02, 2017, bilateral MG screening mammo w CAD. May 30, 2015, bilateral MG screening mammo w CAD. The breast tissue is almost entirely fat. Previous mammotome biopsy in the left breast. There is chronic nodularity bilaterally. No significant changes when compared with prior studies. ASSESSMENT: Benign, BI-RAD 2 RECOMMENDATION: Routine screening mammogram of both breasts in 1 year.
== END | disposition home or self-care (01) ==
LOC: RADMAMWWP 07:34
PROVIDERS: ATTEND Surgery
DX: Z12.31 Encounter for screening mammogram for malignant neoplasm of breast (principal)
CPT/HCPCS: 77067

== ENCOUNTER → 2021-01-09 | Outpatient (CLI) | payer BC ==
--- NOTE | 2021-01-12 11:15 | MM ---
Reason for exam: screening (asymptomatic). Last mammogram was performed 1 year and 8 months ago. History: Patient is postmenopausal and is nulliparous. Family history of breast cancer in mother at age 64. Benign MG stereo VAD BX LT of the left breast, November 14, 2017. Took hormonal contraceptives for 10 years. Physical Findings: A clinical breast exam by your physician is recommended on an annual basis and results should be correlated with mammographic findings. MG Screening Mammo w CAD Bilateral CC and MLO view(s) were taken. Prior study comparison: May 25, 2019, bilateral MG screening mammo w CAD. June 02, 2018, left breast MG diagnostic mammo LT w CAD. There are scattered fibroglandular densities. There is no discrete abnormality. No significant changes when compared with prior studies. ASSESSMENT: Negative, BI-RAD 1 RECOMMENDATION: Routine screening mammogram of both breasts in 1 year.
== END | disposition home or self-care (01) ==
LOC: RADMAMWWP 07:35
PROVIDERS: ATTEND Family Medicine
DX: Z12.31 Encounter for screening mammogram for malignant neoplasm of breast (principal); Z78.0 Asymptomatic menopausal state; Z80.3 Family history of malignant neoplasm of breast
CPT/HCPCS: 77067

== ENCOUNTER → 2021-05-29 | Outpatient (CLI) | payer BC ==
[~2021-05-29] MED LIST changes: -CLINDAMYCIN 900 MG in DEXTROSE 5% IN WATER 50 ML IVPB ONE; -DEXAMETHASONE SOD PHOSPHATE 10 MG/ML 1 ML VIAL IV ONE; -LIDOCAINE 1% 20 ML VIAL (10MG/ML) FOR IV START INTRADERMA PRN; -ONDANSETRON 4 MG/2 ML VIAL IVP ONE; +REGADENOSON 0.4 MG/5 ML SYRINGE IV PRN; -SCOPOLAMINE 1.5MG/72HR PATCH TRANSDERM ONE
--- NOTE | 2021-05-29 08:56 | ECHOF ---
Referral Reason:I10 hypertension, R01.1 cardiac murmur, E78.5, R94.3 MEASUREMENTS -------- HEIGHT: 167.6 cm WEIGHT: 117.9 kg BP: RVIDd: 2.2 cm (< 3.3) IVSd: 1.2 cm (0.6 - 1.1) LVIDd: 4.3 cm (3.9 - 5.3) LVPWd: 1.2 cm (0.6 - 1.1) IVSs: 1.9 cm LVIDs: 2.1 cm LVPWs: 2.0 cm LAESV Index (A-L): 19.30 ml/m Ao Diam: 2.7 cm (2.0 - 3.7) AV Cusp: 1.7 cm (1.5 - 2.6) LA Diam: 2.9 cm (2.7 - 3.8) MV EXCURSION: 18.395 mm (> 18.000) MV EF SLOPE: 135 mm/s (70 - 150) EPSS: 1.6 cm MV E José Miguel: 1.01 m/s MV DecT: 174 ms MV A José Miguel: 1.09 m/s MV E/A Ratio: 0.93 AV maxP.55 mmHg AV meanP.35 mmHg RAP: 5.00 mmHg RVSP: 34.97 mmHg FINDINGS -------- Sinus rhythm. This was a technically good study. The left ventricular size is normal. There is mild concentric left ventricular hypertrophy. Overa ll left ventricular systolic function is normal with, an EF between 55 - 60 %. The diastolic fillin g pattern is normal for the age of the patient 10.97. The right ventricle is normal in size. Normal LA size by volume 22+/-6 ml/m2. The right atrial size is normal. Interatrial and interventricular septum intact. Aortic valve is trileaflet and is mildly thickened. Peak/mean gradient across the Aortic Valve is 1 6.55mmHg / 8.35mmHg. The mitral valve is normal. Mild mitral regurgitation is present. The tricuspid valve appears structurally normal. Mild tricuspid regurgitation present. Right vent ricular systolic pressure is normal at < 35 mmHg. There is no pulmonic regurgitation present. The aortic root size is normal. Normal inferior vena cava with normal inspiratory collapse consistent with estimated right atrial pre ssure of 5 mmHg. There is no pericardial effusion. CONCLUSIONS -------- 1. The left ventricular size is normal. 2. There is mild concentric left ventricular hypertrophy. 3. Overall left ventricular systolic function is normal with, an EF between 55 - 60 %. 4. Normal LA size by volume 22+/-6 ml/m2. 5. Aortic valve is trileaflet and is mildly thickened. 6. Peak/mean gradient across the Aortic Valve is 16.55mmHg / 8.35mmHg. 7. Mild mitral regurgitation is present. 8. Mild tricuspid regurgitation present. 9. There is no pericardial effusion. VICE PRESIDENT QUALITY: Phylicia Shane RDCS
--- NOTE | 2021-05-29 11:34 | NM ---
EXAMINATION TYPE: NM stress lexiscan cardiolite DATE OF EXAM: 05/29/2021 COMPARISON: NONE HISTORY: I10 hypertension, R01.1 cardiac murmur, R94.3, E78.5 TECHNIQUE: After the intravenous administration of 9.4 mCi Tc 99m Sestamibi - Cardiolite resting SPE CT images acquired 45 minutes post injection. The patient received 0.4mg Lexiscan, 25.8 mCi Tc 99m Sestamibi - Stress images obtained [address] injection FINDINGS: Review of stress and rest SPECT images demonstrates mild decreased uptake on stress and rest images a long the anteroapical left ventricle, there is some decreased uptake along the apex on stress as comp ared to rest images however. Gated analysis shows normal wall motion with an estimated left ventricu lar ejection fraction of 50 %. 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 A Yellow level critical message alert has been initiated for Sabrina Mccloud MD via the [employer] Critical Results System on 05/29/2021 11:30 AM. This message alert has been sent to Sabrina Mccloud MD via the preferences provided by the clinician for the receipt of Radiology Critical Findings. [employer] e ID [id number].
--- NOTE | 2021-05-29 11:55 | EST ---
EXERCISE STRESS AGE: 55 SEX: F HT: 5'6" WT: 260 lbs. PROTOCOL: Lexiscan STAGE: NA DURATION OF EXERCISE: NA HEART RATE REST: 76 BLOOD PRESSURE REST: 114/84 MAXIMUM HEART RATE ACHIEVED: 90 MAXIMUM BLOOD PRESSURE: 184/87 85% MPHR: 139 100% MPHR: 164 METS: NA INDICATIONS: Hypertension CLINICAL INFORMATION: Baseline rhythm is sinus mechanism rate of 76, normal axis and intervals. Nonspecific ST-T wave changes. Baseline blood pressure 114/84 m Hg. Patient received injection of Lexiscan. Electrocardiograph monitoring revealed no evidence of diagnostic ischemic ST deviation. Cardiolite was injected per protocol. CONCLUSION: 1. Nondiagnostic electrocardiographic stress testing. 2. Nuclear images will be reported separately. MMODL / IJN: [id number] /
== END | disposition home or self-care (01) ==
LOC: RADNMMAIN 07:44
PROVIDERS: ATTEND Family Medicine
DX: I08.1 Rheumatic disorders of both mitral and tricuspid valves (principal)
CPT/HCPCS: 93017; 93306; 78452; A9500; J2785

== ENCOUNTER 2021-10-13 08:29 | Day surgery (SDC) | payer BC ==
[2021-10-08 15:00] VITALS: BMI 41.5
[~2021-10-13 08:29] MED LIST changes: +LIDOCAINE 1% (10MG/ML) FOR IV START INTRADERMA PRN; -REGADENOSON 0.4 MG/5 ML SYRINGE IV PRN
[2021-10-13] MEDS: LACTATED RINGERS 1,000 ML IV SCH ×2 (09:08→09:34)
[2021-10-13 09:11] VITALS: RESP 16; TEMP 97.8
[2021-10-13] MEDS ORDERED: LIDOCAINE 1% INJ 10MG/ML (20 ML MDV) ONE (09:36)
[2021-10-13] MEDS ORDERED: PROPOFOL 10 MG/ML 20 ML VIAL IV ONE (09:36)
--- NOTE | 2021-10-13 09:38 | P.GSHP ---
History of Present Illness H&P Date: 10/13/21 Chief Complaint: Colon cancer screening 56-year-old female here today for colonoscopy. She has had 1 many years ago. No bowel complaints. No family history of colon cancer. Past Medical History Past Medical History: Hypertension, Thyroid Disorder Additional Past Medical History / Comment(s): seasonal allergies History of Any Multi-Drug Resistant Organisms: None Reported Past Surgical History: Cholecystectomy, Tonsillectomy, Tubal Ligation, Uterine Ablation Additional Past Surgical History / Comment(s): nose surgery 2015,rt ORIF tib/fib Past Anesthesia/Blood Transfusion Reactions: Previous Problems w/ Anesthesia, Family History of Problems w/ Anesthesia Additional Past Anesthesia/Blood Transfusion Reaction / Comment(s): states "feels agitated and panicky with anesthesia.". mother hallucinated, anxious, disoriented Smoking Status: Never smoker - Past Family History Mother Family Medical History: Cancer, Coronary Artery Disease (CAD) Additional Family Medical History / Comment(s): CABG Father Family Medical History: Cancer, Coronary Artery Disease (CAD) Additional Family Medical History / Comment(s): CABG Brother(s) Family Medical History: AFIB Medications and Allergies Home Medications Medication Instructions Recorded Confirmed Type Enalapril [Vasotec] 20 mg PO QAM 12/29/16 10/08/21 History Levothyroxine Sodium [Synthroid] 200 mcg PO QAM 12/29/16 10/08/21 History Liothyronine Sodium [Cytomel] 5 mcg PO QAM 12/29/16 10/08/21 History Montelukast [Singulair] 10 mg PO QAM 12/29/16 10/08/21 History Diltiazem HCl [Diltiazem HCl 24Hr 120 mg PO QAM 10/08/21 10/08/21 History ER] Metoprolol Succinate [Toprol XL] 25 mg PO DAILY 10/08/21 10/08/21 History Rosuvastatin [Crestor] 10 mg PO DAILY 10/08/21 10/08/21 History Vortioxetine Hydrobromide 10 mg PO QAM 10/08/21 10/08/21 History [Trintellix] Allergies Allergy/AdvReac Type Severity Reaction Status Date / Time amoxicillin Allergy Anaphylaxis Verified 10/13/21 08:49 Penicillins Allergy Anaphylaxis Verified 10/13/21 08:49 Surgical - Exam Vital Signs Temp Pulse Resp BP Pulse Ox 97.8 F 82 16 126/81 95 10/13/21 09:09 10/13/21 09:09 10/13/21 09:09 10/13/21 09:09 10/13/21 09:09 Physical exam: General: Well-developed, well-nourished HEENT: Normocephalic, sclerae nonicteric Abdomen: Nontender, nondistended Extremities: No edema Neuro: Alert and oriented Assessment and Plan (1) Colon cancer screening Narrative/Plan: Will proceed with colonoscopy at this time Current Visit: Yes Status: Acute Code(s): Z12.11 - ENCOUNTER FOR SCREENING FOR MALIGNANT NEOPLASM OF COLON SNOMED Code(s): 821866465
--- NOTE | 2021-10-13 09:58 | P.PCN ---
Date of Procedure: 10/13/21 Procedure(s) Performed: PREOPERATIVE DIAGNOSIS: Colon cancer screening POSTOPERATIVE DIAGNOSIS: Normal exam PROCEDURE: Colonoscopy ANESTHESIA: MAC SURGEON: Chidi Mccloud M.D. SPECIMENS: None ENDOSCOPIC PROCEDURE: The patient was placed on the endoscopy table in the left decubitus position. The Olympus colonoscope was inserted into the anus and passed under direct visualization to the base of the cecum. The appendiceal orifice was visualized. From that point the scope was slowly withdrawn inspecti ng all surfaces carefully. There were no neoplastic inflammatory or polypoid lesions throughout the cecum, ascending, transverse, descending, sigmoid and rectum. There was no visible diverticulosis noted. Digital rectal examination was normal. The patient was taken to the recovery room in stable condition per anesthesia guidelines. RECOMMENDATIONS: Resume diet. Follow-up colonoscopy 10 years.
[2021-10-13 10:07] VITALS: PULSE 69
[2021-10-13 10:19] VITALS: BP 93/58
== END 2021-10-13 10:39 | disposition home or self-care (01) ==
LOC: ORWHC2ENDO 08:29
PROVIDERS: ATTEND Surgery
DX: Z12.11 Encounter for screening for malignant neoplasm of colon (principal); I10 Essential (primary) hypertension; E07.9 Disorder of thyroid, unspecified; Z90.49 Acquired absence of other specified parts of digestive tract; Z98.51 Tubal ligation status; Z98.890 Other specified postprocedural states; Z82.49 Family history of ischemic heart disease and other diseases of the circulatory system; Z79.890 Hormone replacement therapy; Z79.899 Other long term (current) drug therapy; Z88.0 Allergy status to penicillin
CPT/HCPCS: J2001; J2704; G0121; 45378

== ENCOUNTER → 2022-11-19 | Outpatient (CLI) | payer BC ==
--- NOTE | 2022-11-22 18:48 | MM ---
Reason for Exam: Screening (asymptomatic). Last mammogram was performed 1 year(s) and 10 month(s) ago. Patient History: Menarche at age 13. Patient has no children. Postmenopausal. Patient used Hormonal Contraceptives for 10 years. 11/14/2017, Benign Core Biopsy on the left side. Mother had breast cancer, age 64. Risk Values: Myesha 5 year model risk: 2.8%. NCI Lifetime model risk: 15.6%. Prior Study Comparison: 06/02/2018 Left Diagnostic Mammogram, [facility]. 05/25/2019 Bilateral Screening Mammogram, [facility]. 01/09/2021 Bilateral Screening Mammogram, [facility]. Tissue Density: There are scattered fibroglandular densities. Findings: Analyzed By CAD. There is chronic nodularity on both sides. Tiny 3 mm nodularity central left breast now better seen. Too small to further characterize. Possible fluctuating cyst. Reassess at 6 months. Otherwise, no significant change. Overall Assessment: Probably benign, BI-RAD 3 Management: Diagnostic Mammogram of the left breast in 6 months. 1. Patient should continue monthly self breast exams. 2. A clinical breast exam by your physician is recommended on an annual basis. 3. This exam should not preclude additional follow-up of suspicious palpable abnormalities. Electronically signed and approved by: Sherwin Colvin M.D. Radiologist
== END | disposition home or self-care (01) ==
LOC: RADMAMWWP 13:14
PROVIDERS: ATTEND Family Medicine
DX: Z12.31 Encounter for screening mammogram for malignant neoplasm of breast (principal); Z78.0 Asymptomatic menopausal state; Z80.3 Family history of malignant neoplasm of breast
CPT/HCPCS: 77067

== ENCOUNTER → 2022-12-25 | Outpatient (CLI) | payer BC ==
[2022-12-25 13:48] LABS: Chol/HDL Ratio 2.37 Ratio; LDL Cholesterol,Calculated 46.5 mg/dL (0.0-131.0)
== END | disposition home or self-care (01) ==
LOC: LABWHC1 09:12
PROVIDERS: ATTEND Nurse Practitioner Family
DX: Z00.00 Encounter for general adult medical examination without abnormal findings (principal); Z11.59 Encounter for screening for other viral diseases; Z13.228 Encounter for screening for other metabolic disorders; I25.10 Atherosclerotic heart disease of native coronary artery without angina pectoris; I10 Essential (primary) hypertension; E03.9 Hypothyroidism, unspecified
CPT/HCPCS: 36415; 80061

== ENCOUNTER → 2023-09-19 | Outpatient (CLI) | payer BC ==
--- NOTE | 2023-09-19 14:03 | MM ---
Reason for Exam: Follow-up at short interval from prior study. Last screening mammogram was performed 10 month(s) ago. Patient History: Menarche at age 13. Patient has no children. Postmenopausal. Patient used Hormonal Contraceptives for 10 years. 11/14/2017, Benign Core Biopsy on the left side. Mother had breast cancer, age 64. Risk Values: Myesha 5 year model risk: 2.9%. NCI Lifetime model risk: 15.2%. Prior Study Comparison: 11/10/2017 Left Diagnostic Ultrasound, [facility]. 06/02/2018 Left Diagnostic Mammogram, [facility]. 05/25/2019 Bilateral Screening Mammogram, [facility]. 01/09/2021 Bilateral Screening Mammogram, [facility]. 11/19/2022 Bilateral MG screening mammo w CAD, [facility]. Tissue Density: There are scattered fibroglandular densities. Findings: Analyzed By CAD. Unchanged intramammary lymph node upper-outer quadrants of both breasts. Subareolar asymmetric density left breast is unchanged with microclip related to prior biopsy. Tiny 3 mm density central left cc view middle depth has become even smaller compatible with a benign etiology. No significant change from prior exams. Overall Assessment: Benign, BI-RAD 2 Management: Screening Mammogram of both breasts in 1 year. Results were given to the patient verbally at the time of exam. Patient should continue monthly self-breast exams. A clinical breast exam by your physician is recommended on an annual basis. This exam should not preclude additional follow-up of suspicious palpable abnormalities. Note on Myesha scores and lifetime risk: 1. A Myesha score greater than 3% is considered moderate risk. If this is the case, consider specialist referral to assess eligibility for a risk reducing agent. 2. If overall lifetime risk for the development of breast cancer is 20% or higher, the patient may qualify for future screening with alternating mammogram and breast MRI. Electronically signed and approved by: Sherwin Colvin M.D. Radiologist
== END | disposition home or self-care (01) ==
LOC: RADMAMWWP 13:18
PROVIDERS: ATTEND Family Medicine
DX: R92.323 Mammographic fibroglandular density, bilateral breasts (principal); Z78.0 Asymptomatic menopausal state; Z80.3 Family history of malignant neoplasm of breast
CPT/HCPCS: 77062; 77066

== ENCOUNTER → 2025-02-22 | Outpatient (CLI) | payer BC ==
--- NOTE | 2025-02-22 11:42 | BD ---
EXAMINATION TYPE: Axial Bone Density DATE OF EXAM: 02/22/2025 CLINICAL HISTORY: 59 years old Female. ICD-10 CODE: N95.1 POST MENOPAUSAL , Additional History: Height: 66.5 Weight: 227.2 FRAX RISK QUESTIONS: Alcohol (3 or more units per day): no Family History (Parent hip fracture): no Glucocorticoids (More than 3mos): no (Ex: prednisone, prednisolone, methylprednisolone, dexamethasone, and hydrocortisone). History of Fracture in Adulthood: ankle Secondary Osteoporosis: 1. Type 1 Diabetes: no 2. Hyperthyroidism: no 3. Menopause before 45: no 4. Malnutrition: no 5. Chronic liver disease: no Rheumatoid Arthritis: no Current Tobacco Use: no RISK FACTORS HISTORY OF: Hip Fracture (Right/Left): no Spine Fracture: no History of Wrist Fracture: no Surgery to Spine/Hip(right/left)/Wrist (right/left): no MEDICATIONS: Thyroid Medications: Synthroid How Long: since age 27 Osteoporosis Medications: no EXAM MEASUREMENTS: Bone mineral densitometry was performed using the [employer] System. Bone mineral density as measured about the Lumbar spine is: ----- L1-L4(G/cm2): 1.397 T Score Values are as follows: ----- L1: 0.1 ----- L2: 0.8 ----- L3: 1.7 ----- L4: 4.0 ----- L1-L4: 1.8 Z Score Values are as follows: ----- L1: 0.2 ----- L2: 0.8 ----- L3: 1.7 ----- L4: 4.0 ----- L1-L4: 1.9 Baseline Study Bone mineral density about the R hip (g/cm2): 0.855 Bone mineral density about the L hip (g/cm2): 0.883 T Score values are as follows: -----R Neck: -1.5 -----L Neck: -1.2 -----R Total: -1.2 -----L Total: -1.0 Z Score values are as follows: -----R Neck: -1.0 -----L Neck: -0.7 -----R Total: -1.1 -----L Total: -0.9 Baseline Study FRAX%s: The graph provided illustrates a 12.8% chance for a major osteoporotic fx and a 1.1% chance f or the hips probability for fx in 10 years time. IMPRESSION: Osteopenia (T Score between -2.5 and -1). There is slightly increased risk of fracture and the patient may be considered for treatment. Re-Screen 2-5 years. NOTE: T-SCORE=SD OF THE YOUNG ADULT MEAN. [facility], , 02/22/2025 11:40 AM
--- NOTE | 2025-02-22 18:25 | MM ---
Reason for Exam: Screening (asymptomatic). Last mammogram was performed 1 year(s) and 5 month(s) ago. Patient History: Menarche at age 13. Patient has no children. Postmenopausal. Patient used Hormonal Contraceptives for 10 years. 11/14/2017, Benign Core Biopsy on the left side. Mother had breast cancer, age 64. Risk Values: Myesha 5 year model risk: 3.0%. NCI Lifetime model risk: 14.9%. Prior Study Comparison: 01/09/2021 Bilateral Screening Mammogram, [facility]. 11/19/2022 Bilateral MG screening mammo w CAD, [facility]. 09/19/2023 Bilateral MG 3D diag mammo w/cad TOMMIE, [facility]. Tissue Density: There are scattered areas of fibroglandular density. Findings: Analyzed By CAD. Chronic bilateral nodularity. There is no suspicious group of microcalcifications or new suspicious mass in either breast. Overall Assessment: Benign, BI-RAD 2 Management: Screening Mammogram of both breasts in 1 year. See note below in regards to the patient's increased 5 year Myesha score. Patient should continue monthly self-breast exams. A clinical breast exam by your physician is recommended on an annual basis. This exam should not preclude additional follow-up of suspicious palpable abnormalities. Note on Myesha scores and lifetime risk: 1. A Myesha score greater than 3% is considered moderate risk. If this is the case, consider specialist referral to assess eligibility for a risk reducing agent. 2. If overall lifetime risk for the development of breast cancer is 20% or higher, the patient may qualify for future screening with alternating mammogram and breast MRI. [facility], , 02/22/2025 6:22 PM. Electronically signed and approved by: Sherwin Colvin M.D. Radiologist
== END | disposition home or self-care (01) ==
LOC: RADMAMWWP 11:04
PROVIDERS: ATTEND Family Medicine
DX: Z12.31 Encounter for screening mammogram for malignant neoplasm of breast (principal); R92.323 Mammographic fibroglandular density, bilateral breasts; N63.20 Unspecified lump in the left breast, unspecified quadrant; N63.10 Unspecified lump in the right breast, unspecified quadrant; M85.89 Other specified disorders of bone density and structure, multiple sites; Z78.0 Asymptomatic menopausal state; Z92.0 Personal history of contraception; Z80.3 Family history of malignant neoplasm of breast
CPT/HCPCS: 77063; 77067; 77080